=== PATIENT | female | born 1940 | race Caucasian/White ===

== ENCOUNTER 2017-09-05 19:19 | Inpatient (IN) | payer MEDICARE, OTHER ==
[2017-09-05 19:41] VITALS: BMI 38.6
--- NOTE | 2017-09-05 22:19 | PDOC ---
History of Present Illness - General Chief Complaint: Syncope/Near Syncope Stated Complaint: SYNCOPE Time Seen by Provider: 09/05/17 21:07 - History of Present Illness Initial Comments: 09/05/17 22:09 "The patient is a 77 year old female with a past medical history of diabetes, HTN, alzheimer's, CHF s/p PPM, and recent left knee replacement (1 week ago), who presents to the emergency department with syncope. Family states that the patient was transferring from chair to bed when she went unresponsive. Granddaughter states that she was holding the patient in her arms to help her into bed when this occurred. She states that the pt's eyes rolled back and she went stiff. Patient was unconscious for 15 seconds total before returning to baseline. No seizure-like movements were witnessed. After the episode the patient had one episode of clear vomiting. Pt now denies any complaints other than fatigue. Denies ever having CP/SOB/palpitations. Family states that this is not the first time this has happened. SHe has had 2- 3 witnessed syncopal events in the past 3 months. However, she has never seen a doctor regarding these episodes. Past History - Past Medical History Allergies/Adverse Reactions: Allergies Allergy/AdvReac Type Severity Reaction Status Date / Time penicillin G Allergy Verified 09/05/17 19:37 Home Medications: Ambulatory Orders Acetaminophen [Tylenol] 325 mg PO Q4HWA 09/05/17 Amlodipine Besylate/Benazepril [Lotrel 5-40 mg Capsule] 1 each PO DAILY Apixaban [Eliquis] 2.5 mg PO DAILY 09/05/17 Aspirin [Aspirin EC] 81 mg PO DAILY 09/05/17 Donepezil HCl [Aricept -] 5 mg PO DAILY 09/05/17 Hydrochlorothiazide 25 mg PO DAILY 09/05/17 Labetalol HCl 300 mg PO BID 09/05/17 Oxycodone HCl 5 mg PO Q4HWA 09/05/17 Pantoprazole Sodium 40 mg PO DAILY 09/05/17 Pioglitazone HCl 15 mg PO DAILY 09/05/17 Rosuvastatin Calcium [Crestor] 10 mg PO HS 09/05/17 Sertraline HCl [Zoloft] 100 mg PO DAILY 09/05/17 COPD: No - Suicide/Smoking/Psychosocial Hx Smoking History: Never smoked Have you smoked in the past 12 months: No Information on smoking cessation initiated: No Hx Alcohol Use: No Drug/Substance Use Hx: No Review of Systems - Review of Systems Comments:: 09/05/17 22:25 "GENERAL/CONSTITUTIONAL: No fever or chills. No weakness. HEAD, EYES, EARS, NOSE AND THROAT: No change in vision. No ear pain or discharge. No sore throat. CARDIOVASCULAR: No chest pain or shortness of breath. RESPIRATORY: No cough, wheezing, or hemoptysis. GASTROINTESTINAL: No nausea, vomiting, diarrhea or constipation. GENITOURINARY: No dysuria, frequency, or change in urination. MUSCULOSKELETAL: No joint or muscle swelling or pain. No neck or back pain. SKIN: No rash NEUROLOGIC: (+) Loss of consciousness. No headache, vertigo, or change in strength/sensation. ENDOCRINE: No increased thirst. No abnormal weight change. HEMATOLOGIC/LYMPHATIC: No anemia, easy bleeding, or history of blood clots. ALLERGIC/IMMUNOLOGIC: No hives or skin allergy." *Physical Exam - Vital Signs Last Vital Signs Temp Pulse Resp BP Pulse Ox 99.6 F 52 L 18 136/68 96 09/05/17 19:27 09/05/17 19:27 09/05/17 19:27 09/05/17 19:27 09/05/17 19:27 - Physical Exam Comments: 09/05/17 22:25 "GENERAL: Awake, alert, in no acute distress HEAD: No signs of trauma EYES: PERRLA, EOMI, sclera anicteric, conjunctiva clear ENT: Auricles normal inspection, hearing grossly normal, nares patent, oropharynx clear without exudates. Moist mucosa NECK: Nontender, no stepoffs, Normal ROM, supple, no lymphadenopathy, JVD, or masses LUNGS: Breath sounds equal, clear to auscultation bilaterally. No wheezes, and no crackles HEART: Regular rate and rhythm, normal S1 and S2, no murmurs, rubs or gallops ABDOMEN: Soft, nontender, normoactive bowel sounds. No guarding, no rebound. No masses EXTREMITIES: Normal range of motion, no edema. No clubbing or cyanosis. No cords, erythema, or tenderness NEUROLOGICAL: Cranial nerves II through XII intact. 5/5 strength and sensation in all extremities, Normal speech, SKIN: Warm, Dry, normal turgor, no rashes or lesions noted. " Heart Score/ECG Review - ECG Impressions Comment:: 09/05/17 22:26 AV paced rhythm, rate 60, no RICCARDO/STDs ED Treatment Course - LABORATORY CBC & Chemistry Diagram: 09/05/17 21:53 09/05/17 21:53 - ADDITIONAL ORDERS Additional order review: Laboratory Results 09/05/17 09/05/17 09/05/17 23:22 21:53 21:53 PT with INR 15.70 H INR 1.39 H PTT (Actin FS) Sodium Potassium Chloride Carbon Dioxide Anion Gap BUN Creatinine Creat Clearance w eGFR Random Glucose Calcium Total Bilirubin AST ALT Alkaline Phosphatase Creatine Kinase Troponin I B-Natriuretic Peptide 735.88 H Total Protein Albumin Urine Color Ltyellow Urine Appearance Slcloudy Urine pH 5.0 Ur Specific [place] 1.012 Urine Protein Negative Urine Glucose (UA) Negative Urine Ketones Negative Urine Blood Negative Urine Nitrite Negative Urine Bilirubin Negative Urine Urobilinogen Negative Urine WBC (Auto) 5 Urine RBC (Auto) <1 Ur Epithelial Cells Rare Urine Bacteria Rare 09/05/17 09/05/17 09/05/17 21:53 21:53 21:53 PT with INR INR PTT (Actin FS) 32.6 Sodium 140 Potassium 4.3 Chloride 101 Carbon Dioxide 28 Anion Gap 11 BUN 45 H Creatinine 1.9 H Creat Clearance w eGFR 25.50 Random Glucose 148 H Calcium 8.9 Total Bilirubin 0.4 AST 14 L ALT 23 Alkaline Phosphatase 116 Creatine Kinase 86 Troponin I < 0.02 B-Natriuretic Peptide Total Protein 6.5 Albumin 3.3 L Urine Color Urine Appearance Urine pH Ur Specific [place] Urine Protein Urine Glucose (UA) Urine Ketones Urine Blood Urine Nitrite Urine Bilirubin Urine Urobilinogen Urine WBC (Auto) Urine RBC (Auto) Ur Epithelial Cells Urine Bacteria 09/05/17 21:53 RBC 3.41 L MCV 82.1 MCHC 33.7 RDW 15.1 MPV 10.4 Neutrophils % 77.7 Lymphocytes % 12.1 Monocytes % 7.0 Eosinophils % 2.4 Basophils % 0.8 - RADIOLOGY Radiology Studies Ordered: Category Date Time Status CHEST X-RAY PORTABLE* [RAD] Stat Radiology 09/05/17 21:43 Taken Medical Decision Making - Medical Decision Making 09/05/17 22:26 77 F with syncopal episode. Pt HD stable. Slightly hector in triage but with normal BP. EKG with rate of 60 and no evidence of pacemaker failure. No seizure- like activity witnessed by family. No evidence of head trauma per history or on exam. - Labs, trop, EKG, CXR - admit tele 09/06/17 00:13 CBC,CMP WBC 9.7 K/mm3 (4.0-10.0) 09/05/17 21:53 RBC 3.41 M/mm3 (3.60-5.2) L 09/05/17 21:53 Hgb 9.4 GM/dL (10.7-15.3) L 09/05/17 21:53 Hct 28.0 % (32.4-45.2) L 09/05/17 21:53 MCV 82.1 fl (80-96) 09/05/17 21:53 MCH 27.7 pg (25.7-33.7) 09/05/17 21:53 MCHC 33.7 g/dl (32.0-36.0) 09/05/17 21:53 RDW 15.1 % (11.6-15.6) 09/05/17 21:53 Plt Count 322 K/MM3 (134-434) 09/05/17 21:53 MPV 10.4 fl (7.5-11.1) 09/05/17 21:53 Neutrophils % 77.7 % (42.8-82.8) 09/05/17 21:53 Lymphocytes % 12.1 % (8-40) 09/05/17 21:53 Monocytes % 7.0 % (3.8-10.2) 09/05/17 21:53 Eosinophils % 2.4 % (0-4.5) 09/05/17 21:53 Basophils % 0.8 % (0-2.0) 09/05/17 21:53 Sodium 140 mmol/L (136-145) 09/05/17 21:53 Potassium 4.3 mmol/L (3.5-5.1) 09/05/17 21:53 Chloride 101 mmol/L (98-107) 09/05/17 21:53 Carbon Dioxide 28 mmol/L (21-32) 09/05/17 21:53 Anion Gap 11 (8-16) 09/05/17 21:53 BUN 45 mg/dL (7-18) H 09/05/17 21:53 Creatinine 1.9 mg/dL (0.55-1.02) H 09/05/17 21:53 Creat Clearance w eGFR 25.50 (>60) 09/05/17 21:53 Random Glucose 148 mg/dL (74-106) H 09/05/17 21:53 Calcium 8.9 mg/dL (8.5-10.1) 09/05/17 21:53 Total Bilirubin 0.4 mg/dL (0.2-1.0) 09/05/17 21:53 AST 14 U/L (15-37) L 09/05/17 21:53 ALT 23 U/L (12-78) 09/05/17 21:53 Alkaline Phosphatase 116 U/L (45-117) 09/05/17 21:53 Creatine Kinase 86 IU/L (26-192) 09/05/17 21:53 Troponin I < 0.02 ng/ml (0.00-0.05) 09/05/17 21:53 B-Natriuretic Peptide 735.88 pg/ml (5-450) H 09/05/17 21:53 Total Protein 6.5 g/dl (6.4-8.2) 09/05/17 21:53 Albumin 3.3 g/dl (3.4-5.0) L 09/05/17 21:53 Labs notable for anemia Hb 9.4. Possible SHWETA with Cr 1.9. BNP 735 and cardiomegaly on CXR, suggestive of CHF. Unclear whether these values are pt's baseline, as we have no prior labs. On my read, CXR shows RLL atelectasis vs consolidation. Pt with no s/s pneumonia at this time, afebrile without tachypnea or hypoxia. Will defer abx. Given significant comorbidities, will admit to tele for syncope work up. Consider r/o PE as well given recent post-op status. However, with Cr 1.9, cannot obtain CTA. Consider V/Q scan when admitted. 09/06/17 00:[address] Olivera, who has agreed to admit pt to tele obs. Case discussed in detail with admitting physician including history, physical exam and ancillary studies. Admitting physician has assumed care for the patient and will follow all pending diagnostics and complete the evaluation and treatment. *DC/Admit/Observation/Transfer Diagnosis at time of Disposition: Syncope - Discharge Dispostion Admit: Yes - Referrals Referrals: Perlita Olivera MD [Primary Care Provider] - - Patient Instructions - Post Discharge Activity - Attestations Physician Attestion: 09/06/17 00:18 I, Dr. Jaime Engle MD, attest that this document has been prepared under my direction and personally reviewed by me in its entirety. I further attest, that it accurately reflects all work, treatment, procedures and medical decision -making performed by me.
[2017-09-05 22:30] LABS: BASOPHIL 0.8 % (0-2.0); EOSINOPHIL 2.4 % (0-4.5); MCH 27.7 pg (25.7-33.7); MCHC 33.7 g/dl (32.0-36.0); MEAN CELL VOLUME 82.1 fl (80-96); MEAN PLT VOLUME 10.4 fl (7.5-11.1); NEUTROPHILS 77.7 % (42.8-82.8); PLATELET COUNT 322 K/MM3 (134-434); RDW 15.1 % (11.6-15.6); WHITE BLOOD COUNT 9.7 K/mm3 (4.0-10.0)
[2017-09-05 22:40] LABS: INR 1.39 (0.82-1.09); PROTHROMBIN TIME (PATIENT) 15.7 SEC (9.98-11.88)
[2017-09-05 23:06] LABS: ALBUMIN 3.3 g/dl (3.4-5.0); ALK PHOS 116 U/L (45-117); ANION GAP 11 (8-16); BILIRUBIN,TOTAL 0.4 mg/dL (0.2-1.0); CALCIUM 8.9 mg/dL (8.5-10.1); CO2 28 mmol/L (21-32); CREATININE 1.9 mg/dL (0.55-1.02); GLUCOSE,RANDOM 148 mg/dL (74-106); SGOT/AST 14 U/L (15-37); SGPT/ALT 23 U/L (12-78); TOT PROT 6.5 g/dl (6.4-8.2)
[2017-09-05 23:10] LABS: CPK 86 IU/L (26-192)
[2017-09-05 23:11] LABS: TROPONIN I < 0.02 ng/ml (0.00-0.05)
[2017-09-05 23:35] LABS: URINE APPEARANCE SLCLOUDY; URINE BILIRUBIN NEGATIVE (NEGATIVE); URINE BLOOD NEGATIVE (NEGATIVE); URINE COLOR LTYELLOW; URINE GLUCOSE (UA) NEGATIVE (NEGATIVE); URINE KETONE NEGATIVE (NEGATIVE); URINE NITRITE NEGATIVE (NEGATIVE); URINE PROTEIN NEGATIVE (NEGATIVE); URINE UROBILINOGEN NEGATIVE mg/dL (0.2-1.0)
[2017-09-06 00:01] LABS: URINE LEUK ESTERASE 1+ (NEGATIVE)
[2017-09-06 00:03] LABS: URINE BACTERIA RARE /hpf (NONE SEEN); URINE RBC <1 /hpf (0-3); URINE WBC 5 /hpf (3-5)
[2017-09-06] MEDS ORDERED: oxyCODONE HCL 5 MG TABLET PO PRN (07:18)
[2017-09-06 08:49] LABS: BASOPHIL 1.5 % (0-2.0); EOSINOPHIL 3.6 % (0-4.5); MCH 27.4 pg (25.7-33.7); MCHC 33.3 g/dl (32.0-36.0); MEAN CELL VOLUME 82.4 fl (80-96); MEAN PLT VOLUME 10.1 fl (7.5-11.1); NEUTROPHILS 70.7 % (42.8-82.8); PLATELET COUNT 310 K/MM3 (134-434); RDW 14.9 % (11.6-15.6); WHITE BLOOD COUNT 9.5 K/mm3 (4.0-10.0)
--- NOTE | 2017-09-06 08:57 | HP ---
Admitting History and Physical - Admission History of Present Illness: 77 year old female with a past medical history of diabetes, HTN, alzheimer's, CHF s/p PPM, and recent left knee replacement (1 week ago), who presents to the emergency department with syncope. Family states that the patient was transferring from chair to bed when she went unresponsive. Granddaughter states that she was holding the patient in her arms to help her into bed when this occurred. She states that the pt's eyes rolled back and she went stiff. Patient was unconscious for 15 seconds total before returning to baseline. No seizure- like movements were witnessed. After the episode the patient had one episode of clear vomiting. Pt now denies any complaints other than fatigue. Denies ever having CP/SOB/palpitations. Family states that this is not the first time this has happened. SHe has had 2- 3 witnessed syncopal events in the past 3 months. However, she has never seen a doctor regarding these episodes. 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 Cardiovascular: Yes: CAD (S/P PCI), HTN, Hyperlipdemia Pulmonary: Yes: COPD Gastrointestinal: Yes: GERD Musculoskeletal: Yes: Osteoarthritis Endocrine: Yes: Diabetes Mellitus - Past Surgical History Past Surgical History: Yes: Joint Replacement - Smoking History Smoking history: Never smoked Have you smoked in the past 12 months: No - Alcohol/Substance Use Hx Alcohol Use: No Home Medications - Allergies Allergies/Adverse Reactions: Allergies Allergy/AdvReac Type Severity Reaction Status Date / Time penicillin G Allergy Verified 09/05/17 19:37 - Home Medications Home Medications: Ambulatory Orders Acetaminophen [Tylenol] 325 mg PO Q4HWA 09/05/17 Amlodipine Besylate/Benazepril [Lotrel 5-40 mg Capsule] 1 each PO DAILY Apixaban [Eliquis] 2.5 mg PO DAILY 09/05/17 Aspirin [Aspirin EC] 81 mg PO DAILY 09/05/17 Donepezil HCl [Aricept -] 5 mg PO DAILY 09/05/17 Hydrochlorothiazide 25 mg PO DAILY 09/05/17 Labetalol HCl 300 mg PO BID 09/05/17 Oxycodone HCl 5 mg PO Q4HWA 09/05/17 Pantoprazole Sodium 40 mg PO DAILY 09/05/17 Pioglitazone HCl 15 mg PO DAILY 09/05/17 Rosuvastatin Calcium [Crestor] 10 mg PO HS 09/05/17 Sertraline HCl [Zoloft] 100 mg PO DAILY 09/05/17 Review of Systems - Review of Systems Constitutional: reports: Weakness Cardiovascular: denies: Chest Pain Respiratory: denies: SOB Neurological: reports: Syncope Physical Examination Vital Signs: Vital Signs Temperature 98.3 F 09/06/17 06:29 Pulse Rate 68 09/06/17 06:29 Respiratory Rate 18 09/06/17 06:29 Blood Pressure 139/63 09/06/17 06:29 O2 Sat by Pulse Oximetry (%) 98 09/06/17 06:29 Neck: Yes: Supple Cardiovascular: Yes: Regular Rate and Rhythm Respiratory: Yes: Regular, CTA Bilaterally Gastrointestinal: Yes: Normal Bowel Sounds, Soft Musculoskeletal: Yes: Other (DRESSING OVER LEFT KNEE) Edema: Yes Neurological: Yes: Alert, Confusion, Unsteady Gait. No: Facial Droop Labs: CBC, BMP 09/05/17 21:53 Problem List - Problems (1) Syncope Assessment/Plan: CT OF HEAD NEUROLOGY CONSULT TELEMETRY FOLLOW LABS D-DIMER Code(s): R55 - SYNCOPE AND COLLAPSE (2) CAD (coronary artery disease) Assessment/Plan: FOLLOW CE CARDIO Code(s): I25.10 - ATHSCL HEART DISEASE OF [place] CORONARY ARTERY W/O ANG PCTRS (3) HTN (hypertension) Assessment/Plan: SAME MEDS MONITOR Code(s): I10 - ESSENTIAL (PRIMARY) HYPERTENSION (4) Cardiac pacemaker in situ Code(s): Z95.0 - PRESENCE OF CARDIAC PACEMAKER (5) Status post knee replacement Assessment/Plan: OTHO CONSULT ON ELIQUIS 2.5 DAILY--INCREASE TO 5 MG BID DUPLEX OF LE Code(s): Z96.659 - PRESENCE OF UNSPECIFIED ARTIFICIAL KNEE JOINT
[2017-09-06 09:19] LABS: TROPONIN I 0.02 ng/ml (0.00-0.05)
[2017-09-06] MEDS ORDERED: APIXABAN 2.5 MG TABLET PO SCH (10:00)
[2017-09-06] MEDS ORDERED: ACETAMINOPHEN 325 MG TABLET (FP) PO SCH (10:00)
[2017-09-06] MEDS ORDERED: HYDROCHLOROTHIAZIDE 25 MG TABLET (FP) PO SCH (10:00)
[2017-09-06] MEDS ORDERED: ACETAMINOPHEN 325 MG TABLET (FP) ONE (10:30)
[2017-09-06] MEDS ORDERED: HYDROCHLOROTHIAZIDE 25 MG TABLET (FP) ONE (10:31)
[2017-09-06] MEDS ORDERED: amLODIPine BESYLATE 5 MG TABLET (FP) ONE (10:31)
[2017-09-06] MEDS ORDERED: LISINOPRIL 20 MG TABLET (FP) ONE (10:31)
[2017-09-06] MEDS ORDERED: PANTOPRAZOLE 40 MG TABLET (FP) ONE (10:31)
[2017-09-06] MEDS ORDERED: ASPIRIN COATED 81 MG TABLET.EC ONE (10:32)
[2017-09-06] MEDS ORDERED: LABETALOL HCL 100 MG TABLET (FP) ONE (10:32)
[2017-09-06] MEDS ORDERED: SERTRALINE HCL 50 MG TABLET (FP) ONE (10:32)
[2017-09-06] MEDS ORDERED: DONEPEZIL HCL 5 MG TABLET (FP) ONE (10:32)
[2017-09-06] MEDS: amLODIPine BESYLATE 5 MG TABLET (FP) PO SCH (10:50)
[2017-09-06] MEDS: SERTRALINE HCL 50 MG TABLET (FP) PO SCH (10:50)
[2017-09-06] MEDS: PANTOPRAZOLE 40 MG TABLET (FP) PO SCH (10:50)
[2017-09-06] MEDS: LISINOPRIL 20 MG TABLET (FP) PO SCH (10:50)
[2017-09-06] MEDS: LABETALOL HCL 100 MG TABLET (FP) PO SCH ×2 (10:50→22:48)
[2017-09-06] MEDS: ASPIRIN COATED 81 MG TABLET.EC PO SCH (10:50)
[2017-09-06] MEDS: DONEPEZIL HCL 5 MG TABLET (FP) PO SCH (10:50)
[2017-09-06] MEDS: PIOGLITAZONE HCL 15 MG TABLET (FP) PO SCH (10:58)
[2017-09-06] MEDS: INSULIN SLIDING SCALE (NOVOLOG) 1 VIAL SQ SCH ×3 (11:56→22:54)
--- NOTE | 2017-09-06 12:10 | CON.NEURO ---
Consult - History of Present Illness History of Present Illness: 77 year old female history of DM, HTN ,Alzheimer disease, CHF , recent left knee replacement. She came to [facility] for being unreponsive for few seconds. Her eye rolled back and she went siff, there was no seizure activity ( motor tonic or clonci acvity). There was no tongue bite or incontinence or post ictal confusion. She did have similar event in past. 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 Cardio/Vascular: Yes: CAD (S/P PCI), HTN, Hyperlipdemia Pulmonary: Yes: COPD Gastrointestinal: Yes: GERD Musculoskeletal: Yes: Osteoarthritis Endocrine: Yes: Diabetes Mellitus - Past Surgical History Past Surgical History: Yes: Joint Replacement - Alcohol/Substance Use Hx Alcohol Use: No - Smoking History Smoking history: Never smoked Have you smoked in the past 12 months: No Home Medications - Allergies Allergies/Adverse Reactions: Allergies Allergy/AdvReac Type Severity Reaction Status Date / Time penicillin G Allergy Verified 09/05/17 19:37 - Home Medications Home Medications: Ambulatory Orders Acetaminophen [Tylenol] 325 mg PO Q4HWA 09/05/17 Amlodipine Besylate/Benazepril [Lotrel 5-40 mg Capsule] 1 each PO DAILY Apixaban [Eliquis] 2.5 mg PO DAILY 09/05/17 Aspirin [Aspirin EC] 81 mg PO DAILY 09/05/17 Donepezil HCl [Aricept -] 5 mg PO DAILY 09/05/17 Hydrochlorothiazide 25 mg PO DAILY 09/05/17 Labetalol HCl 300 mg PO BID 09/05/17 Oxycodone HCl 5 mg PO Q4HWA 09/05/17 Pantoprazole Sodium 40 mg PO DAILY 09/05/17 Pioglitazone HCl 15 mg PO DAILY 09/05/17 Rosuvastatin Calcium [Crestor] 10 mg PO HS 09/05/17 Sertraline HCl [Zoloft] 100 mg PO DAILY 09/05/17 Physical Exam-Neuro Vital Signs: Vital Signs Temperature 97.7 F 09/06/17 10:29 Pulse Rate 65 09/06/17 10:29 Respiratory Rate 18 09/06/17 06:29 Blood Pressure 132/62 09/06/17 10:29 O2 Sat by Pulse Oximetry (%) 98 09/06/17 10:29 Labs: CBC, BMP 09/06/17 08:30 09/05/17 21:53 INR, PTT INR 1.39 (0.82-1.09) H 09/05/17 21:53 Assessment/Plan cc episod of passing out HPI 77 year old female history of DM, HTN ,Alzheimer disease, CHF , recent left knee replacement. She came to [facility] for being unreponsive for few seconds. Her eye rolled back and she went siff, there was no seizure activity ( motor tonic or clonci acvity). There was no tongue bite or incontinence or post ictal confusion. She did have similar event in past. Past Medical History as above FH, SH non contributory and reviewed in chart ROS reviewed in chart Home Medications: Acetaminophen [Tylenol] 325 mg PO Q4HWA 09/05/17 Amlodipine Besylate/Benazepril [Lotrel 5-40 mg Capsule] 1 each PO DAILY Apixaban [Eliquis] 2.5 mg PO DAILY 09/05/17 Aspirin [Aspirin EC] 81 mg PO DAILY 09/05/17 Donepezil HCl [Aricept -] 5 mg PO DAILY 09/05/17 Hydrochlorothiazide 25 mg PO DAILY 09/05/17 Labetalol HCl 300 mg PO BID 09/05/17 Oxycodone HCl 5 mg PO Q4HWA 09/05/17 Pantoprazole Sodium 40 mg PO DAILY 09/05/17 Pioglitazone HCl 15 mg PO DAILY 09/05/17 Rosuvastatin Calcium [Crestor] 10 mg PO HS 09/05/17 Sertraline HCl [Zoloft] 100 mg PO DAILY 09/05/17 Neurological Examination Alert able to follow command, speech is ormal eomi, and no face asymmetry, pupils is reactive moving all extremity sensation is normal grossly ct head nto done Assessemnt- Most likley syncopl episode, unlikley to be epileptic seizure activity Plan would do ct head and eeg - cardiac work up as per primary - supportive care and resume home medication - no need for AED Medication Thanks for consult, would continue to follow with primary Fred Espinosa MD
[2017-09-06 12:16] LABS: URINE LEUK ESTERASE TRACE (NEGATIVE)
--- NOTE | 2017-09-06 15:14 | CON.CARD ---
Consult Consult Specialty:: Cardiology - History of Present Illness Chief Complaint: syncope History of Present Illness: 77 F with Alzheimers disease, HTN, recent Knee replacement, records form [place] indicate possible DVT with ho PPM was admitted after a syncopal event as per notes while being transferred, she hd transient LOC and became stiff. No reports of dyspnea or palpitations. Unknown prior CAD history. 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 Cardio/Vascular: Yes: CAD (S/P PCI), HTN, Hyperlipdemia Pulmonary: Yes: COPD Gastrointestinal: Yes: GERD Musculoskeletal: Yes: Osteoarthritis Endocrine: Yes: Diabetes Mellitus - Past Surgical History Past Surgical History: Yes: Joint Replacement - Alcohol/Substance Use Hx Alcohol Use: No - Smoking History Smoking history: Never smoked Have you smoked in the past 12 months: No Home Medications - Allergies Allergies/Adverse Reactions: Allergies Allergy/AdvReac Type Severity Reaction Status Date / Time penicillin G Allergy Verified 09/05/17 19:37 - Home Medications Home Medications: Ambulatory Orders Acetaminophen [Tylenol] 325 mg PO Q4HWA 09/05/17 Amlodipine Besylate/Benazepril [Lotrel 5-40 mg Capsule] 1 each PO DAILY Apixaban [Eliquis] 2.5 mg PO DAILY 09/05/17 Aspirin [Aspirin EC] 81 mg PO DAILY 09/05/17 Donepezil HCl [Aricept -] 5 mg PO DAILY 09/05/17 Hydrochlorothiazide 25 mg PO DAILY 09/05/17 Labetalol HCl 300 mg PO BID 09/05/17 Oxycodone HCl 5 mg PO Q4HWA 09/05/17 Pantoprazole Sodium 40 mg PO DAILY 09/05/17 Pioglitazone HCl 15 mg PO DAILY 09/05/17 Rosuvastatin Calcium [Crestor] 10 mg PO HS 09/05/17 Sertraline HCl [Zoloft] 100 mg PO DAILY 09/05/17 Review of Systems Unable to obtain ROS, reason: Due to Dementia Vital Signs: Vital Signs Temperature 98.7 F 09/06/17 12:00 Pulse Rate 55 L 09/06/17 12:00 Respiratory Rate 18 09/06/17 12:00 Blood Pressure 123/50 09/06/17 12:00 O2 Sat by Pulse Oximetry (%) 98 09/06/17 12:00 Constitutional: Yes: Well Nourished, No Distress Eyes: Yes: WNL, Conjunctiva Clear HENT: Yes: Atraumatic, Normocephalic Neck: Yes: Supple, Trachea Midline Respiratory: Yes: Regular, CTA Bilaterally Gastrointestinal: Yes: Normal Bowel Sounds, Soft Cardiovascular: Yes: Regular Rate and Rhythm Heart Sounds: Yes: S1, S2 Edema: No - Other Data Labs, Other Data: CBC, BMP 09/06/17 08:30 09/05/17 21:53 INR, PTT INR 1.39 (0.82-1.09) H 09/05/17 21:53 Troponin, BNP 09/05/17 09/05/17 09/06/17 21:53 21:53 08:30 Troponin I < 0.02 0.02 B-Natriuretic Peptide 735.88 H Troponin, BNP 09/05/17 09/05/17 09/06/17 21:53 21:53 08:30 Troponin I < 0.02 0.02 B-Natriuretic Peptide 735.88 H Imaging - Results EKG: Image Reviewed (AV paced. HR 50 BPM) Problem List - Problems (1) Syncope Code(s): R55 - SYNCOPE AND COLLAPSE (2) Cardiac pacemaker in situ Code(s): Z95.0 - PRESENCE OF CARDIAC PACEMAKER (3) HTN (hypertension) Code(s): I10 - ESSENTIAL (PRIMARY) HYPERTENSION Assessment/Plan 77 F previous pacemaker with alzheimers dementia, possible CAD, possible DVT, recent knee replacement surgery, who was admitted with another bout of syncope. SHe has renal insufficiency. May have had orthostatic BP decline and dehydration. WOuld exclude pacer malfunction or other arrhythmia. -Please check pacer function-needs interrogation -Echocardiogram to assess EF -Hold HCTZ -Check orthostatic BP. -Continue telemetry. Will follow with you.
--- NOTE | 2017-09-06 17:19 | CON.PULM ---
Consult Consult Specialty:: PULMONARY Referred by:: Dr. Olivera Reason for Consultation:: elevated d-dimer - History of Present Illness Chief Complaint: syncope History of Present Illness: 77yo female with h/o HTN, DM, CHF, s/p PPM, dementia, left knee replacement 1 week ago who was admitted with syncope. She denies any shortness of breath or chest pain. No palpitations. Records from [facility] showing possible DVT but repeat dopplers here were negative. No leg pain. She is a never smoker. Blood work with an elevated d-dimer. 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 Cardio/Vascular: Yes: CAD (S/P PCI), HTN, Hyperlipdemia Pulmonary: Yes: COPD Gastrointestinal: Yes: GERD Musculoskeletal: Yes: Osteoarthritis Endocrine: Yes: Diabetes Mellitus - Past Surgical History Past Surgical History: Yes: Joint Replacement - Alcohol/Substance Use Hx Alcohol Use: No - Smoking History Smoking history: Never smoked Have you smoked in the past 12 months: No Home Medications - Allergies Allergies/Adverse Reactions: Allergies Allergy/AdvReac Type Severity Reaction Status Date / Time penicillin G Allergy Verified 09/05/17 19:37 - Home Medications Home Medications: Ambulatory Orders Acetaminophen [Tylenol] 325 mg PO Q4HWA 09/05/17 Amlodipine Besylate/Benazepril [Lotrel 5-40 mg Capsule] 1 each PO DAILY Apixaban [Eliquis] 2.5 mg PO DAILY 09/05/17 Aspirin [Aspirin EC] 81 mg PO DAILY 09/05/17 Donepezil HCl [Aricept -] 5 mg PO DAILY 09/05/17 Hydrochlorothiazide 25 mg PO DAILY 09/05/17 Labetalol HCl 300 mg PO BID 09/05/17 Oxycodone HCl 5 mg PO Q4HWA 09/05/17 Pantoprazole Sodium 40 mg PO DAILY 09/05/17 Pioglitazone HCl 15 mg PO DAILY 09/05/17 Rosuvastatin Calcium [Crestor] 10 mg PO HS 09/05/17 Sertraline HCl [Zoloft] 100 mg PO DAILY 09/05/17 Review of Systems - Review of Systems Constitutional: denies: Chills, Fever Eyes: denies: Recent Change in Vision HENT: denies: Nasal Congestion, Throat Pain Neck: denies: Stiffness, Tenderness Cardiovascular: denies: Chest Pain, Shortness of Breath Respiratory: denies: Cough, Wheezing Gastrointestinal: denies: Abdominal Pain, Nausea, Vomiting Genitourinary: denies: Dysuria, Hematuria Neurological: reports: Syncope. denies: Dizziness, Headache Physical Exam Vital Sings: Vital Signs Temperature 98.7 F 09/06/17 12:00 Pulse Rate 55 L 09/06/17 12:00 Respiratory Rate 18 09/06/17 12:00 Blood Pressure 123/50 09/06/17 12:00 O2 Sat by Pulse Oximetry (%) 98 09/06/17 12:00 Constitutional: Yes: Calm Eyes: Yes: Conjunctiva Clear, EOM Intact HENT: Yes: Atraumatic, Normocephalic Neck: Yes: Supple, Trachea Midline Cardiovascular: Yes: Regular Rate and Rhythm Respiratory: Yes: Regular, Diminished (decreased breath sounds at the bases) ...Clubbing: No Gastrointestinal: Yes: Normal Bowel Sounds, Soft Edema: No (left leg in immobilizer) Labs: CBC, BMP 09/06/17 08:30 09/05/17 21:53 Imaging - Results Chest X-ray: Report Reviewed, Image Reviewed (pulmonary vascular congestion) Problem List - Problems (1) Cardiac pacemaker in situ Code(s): Z95.0 - PRESENCE OF CARDIAC PACEMAKER (2) HTN (hypertension) Code(s): I10 - ESSENTIAL (PRIMARY) HYPERTENSION (3) Status post knee replacement Code(s): Z96.659 - PRESENCE OF UNSPECIFIED ARTIFICIAL KNEE JOINT (4) Syncope Code(s): R55 - SYNCOPE AND COLLAPSE Assessment/Plan Syncope Recent Knee Surgery HTN CHF Dementia - elevated d-dimer is nonspecific especially after recent surgery - repeat LE dopplers were negative, pt without symptoms, not tachycardic or hypoxic, so PE would be less likely - echocardiogram - telemetry monitoring Thank you for this consult Terry Peters MD
--- NOTE | 2017-09-06 21:03 | EKG ---
Test Reason : Blood Pressure : / mmHG Vent. Rate : 060 BPM Atrial Rate : 060 BPM P-R Int : 174 ms QRS Dur : 194 ms QT Int : 524 ms P-R-T Axes : 070 -81 082 degrees QTc Int : 524 ms Atrial-sensed ventricular-paced rhythm ABNORMAL ECG NO PREVIOUS ECGS AVAILABLE Confirmed by ALEXANDRIA LOUIS MD ([id number]) on 09/06/2017 9:03:13 PM Referred By: Confirmed By:ALEXANDRIA LOUIS MD
--- NOTE | 2017-09-06 22:09 | EKG ---
Test Reason : Blood Pressure : / mmHG Vent. Rate : 050 BPM Atrial Rate : 050 BPM P-R Int : 188 ms QRS Dur : 188 ms QT Int : 528 ms P-R-T Axes : 027 -81 076 degrees QTc Int : 481 ms AV dual-paced rhythm ABNORMAL ECG WHEN COMPARED WITH ECG OF 05-SEP-2017 20:45, VENT. RATE HAS DECREASED BY 10 BPM Confirmed by ALEXANDRIA LOUIS MD ([id number]) on 09/06/2017 10:08:35 PM Referred By: Star VIEIRA Confirmed By:ALEXANDRIA LOUIS MD
[2017-09-06] MEDS: APIXABAN 5 MG TABLET PO SCH (22:49)
[2017-09-06] MEDS: ACETAMINOPHEN 325 MG TABLET (FP) PO PRN (22:50)
[2017-09-06] MEDS: ROSUVASTATIN CA 10 MG TABLET (FP) PO SCH (22:50)
[2017-09-07] MEDS: INSULIN SLIDING SCALE (NOVOLOG) 1 VIAL SQ SCH ×4 (06:09→21:56)
[2017-09-07] MEDS: PIOGLITAZONE HCL 15 MG TABLET (FP) PO SCH (06:10)
[2017-09-07 07:23] LABS: BASOPHIL 0.6 % (0-2.0); EOSINOPHIL 3.4 % (0-4.5); MCH 27.3 pg (25.7-33.7); MEAN CELL VOLUME 82.7 fl (80-96); MEAN PLT VOLUME 10.7 fl (7.5-11.1); NEUTROPHILS 69.5 % (42.8-82.8); PLATELET COUNT 320 K/MM3 (134-434); RDW 15.3 % (11.6-15.6); WHITE BLOOD COUNT 9.6 K/mm3 (4.0-10.0)
[2017-09-07 08:00] LABS: ALBUMIN 3.1 g/dl (3.4-5.0); ALK PHOS 106 U/L (45-117); ANION GAP 8 (8-16); BILIRUBIN,TOTAL 0.4 mg/dL (0.2-1.0); CALCIUM 8.8 mg/dL (8.5-10.1); CO2 29 mmol/L (21-32); CPK 82 IU/L (26-192); GLUCOSE,RANDOM 99 mg/dL (74-106); SGOT/AST 14 U/L (15-37); SGPT/ALT 18 U/L (12-78); TOT PROT 6.4 g/dl (6.4-8.2)
[2017-09-07 08:02] LABS: TROPONIN I < 0.02 ng/ml (0.00-0.05)
[2017-09-07] MEDS: PANTOPRAZOLE 40 MG TABLET (FP) PO SCH (09:18)
[2017-09-07] MEDS: ASPIRIN COATED 81 MG TABLET.EC PO SCH (09:19)
[2017-09-07] MEDS: DONEPEZIL HCL 5 MG TABLET (FP) PO SCH (09:19)
[2017-09-07] MEDS: APIXABAN 5 MG TABLET PO SCH ×2 (09:19→21:51)
[2017-09-07] MEDS: SERTRALINE HCL 50 MG TABLET (FP) PO SCH (09:19)
[2017-09-07] MEDS: LISINOPRIL 20 MG TABLET (FP) PO SCH (09:21)
--- NOTE | 2017-09-07 11:01 | PN ---
Progress Note (short form) - Note Progress Note: 77 year old female history of DM, HTN ,Alzheimer disease, CHF , recent left knee replacement. She came to hospital for being unreponsive for few seconds. Her eye rolled back and she went siff, there was no seizure activity ( motor tonic or clonci acvity). There was no tongue bite or incontinence or post ictal confusion. She did have similar event in past. Neurological Examination Alert able to follow command, speech is ormal eomi, and no face asymmetry, pupils is reactive moving all extremity sensation is normal grossly CT Head was normal Assessemnt- Sycope, Unlikley to be Epileptic seizure, ct head is normal and neuro exam is unremarkable. -EEG pending, can be done outpatient , if primary team wishes to discharge patient - cardiac work up as per primary - supportive care and resume home medication - no need for AED Medication Thanks for consult, would continue to follow with primary Fred Espinosa MD
[2017-09-07] MEDS ORDERED: INSULIN (NOVOLOG) ASPART 100 UNITS/ML 10ML VIAL ONE (11:32)
[2017-09-07] MEDS: LABETALOL HCL 100 MG TABLET (FP) PO SCH ×2 (11:37→21:51)
--- NOTE | 2017-09-07 12:50 | CON.ORTH ---
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 Cardio/Vascular: Yes: CAD (S/P PCI), HTN, Hyperlipdemia Pulmonary: Yes: COPD Gastrointestinal: Yes: GERD Musculoskeletal: Yes: Osteoarthritis Endocrine: Yes: Diabetes Mellitus - Past Surgical History Past Surgical History: Yes: Joint Replacement - Alcohol/Substance Use Hx Alcohol Use: No - Smoking History Smoking history: Never smoked Have you smoked in the past 12 months: No Home Medications - Allergies Allergies/Adverse Reactions: Allergies Allergy/AdvReac Type Severity Reaction Status Date / Time penicillin G Allergy Verified 09/05/17 19:37 - Home Medications Home Medications: Ambulatory Orders Acetaminophen [Tylenol] 325 mg PO Q4HWA 09/05/17 Amlodipine Besylate/Benazepril [Lotrel 5-40 mg Capsule] 1 each PO DAILY Apixaban [Eliquis] 2.5 mg PO DAILY 09/05/17 Aspirin [Aspirin EC] 81 mg PO DAILY 09/05/17 Donepezil HCl [Aricept -] 5 mg PO DAILY 09/05/17 Hydrochlorothiazide 25 mg PO DAILY 09/05/17 Labetalol HCl 300 mg PO BID 09/05/17 Oxycodone HCl 5 mg PO Q4HWA 09/05/17 Pantoprazole Sodium 40 mg PO DAILY 09/05/17 Pioglitazone HCl 15 mg PO DAILY 09/05/17 Rosuvastatin Calcium [Crestor] 10 mg PO HS 09/05/17 Sertraline HCl [Zoloft] 100 mg PO DAILY 09/05/17 Physical Exam for Ortho Vital Signs: Vital Signs Temperature 98.4 F 09/07/17 09:27 Pulse Rate 54 L 09/07/17 09:27 Respiratory Rate 18 09/07/17 09:27 Blood Pressure 111/45 09/07/17 09:27 O2 Sat by Pulse Oximetry (%) 93 L 09/06/17 21:00 Labs: CBC, BMP 09/07/17 06:00 09/07/17 06:00 INR, PTT INR 1.39 (0.82-1.09) H 09/05/17 21:53 - Lower Extremity Knee: Yes: Left, Pain, Swelling, Other (left knee- aquacel dressing c/d/i, nontender, rom 0-50, calf soft ,nt, nvi) Assessment/Plan 77 year old female with a past medical history of diabetes, HTN, alzheimer's, CHF s/p PPM, and recent left knee replacement (1 week ago), who presents to the emergency department with syncope. Family states that the patient was transferring from chair to bed when she went unresponsive. Granddaughter states that she was holding the patient in her arms to help her into bed when this occurred. She states that the pt's eyes rolled back and she went stiff. Patient was unconscious for 15 seconds total before returning to baseline. No seizure- like movements were witnessed. After the episode the patient had one episode of clear vomiting. Pt now denies any complaints other than fatigue. Denies ever having CP/SOB/palpitations. Pt states that she has had 3 left knee replacements. She does not remember name of surgeon or hospital. a/p- Left knee s/p revision TKR ?? 1 week ago xray ordered PT eval Knee is normal post-op appearance NTD f/u with surgeon upon d/c will follow d/w Dr. Larson
--- NOTE | 2017-09-07 13:32 | PN ---
Progress Note, Physician History of Present Illness: feels better in bed no complaints - Current Medication List Current Medications: Active Medications Acetaminophen (Tylenol -) 325 mg PO Q4H PRN PRN Reason: PAIN 1-5 Last Admin: 09/06/17 22:50 Dose: 325 mg Amlodipine Besylate (Norvasc -) 5 mg PO DAILY [facility] Last Admin: 09/06/17 10:50 Dose: 5 mg Apixaban (Eliquis -) 5 mg PO BID [facility] Last Admin: 09/07/17 09:19 Dose: 5 mg Aspirin (Ecotrin -) 81 mg PO DAILY [facility] Last Admin: 09/07/17 09:19 Dose: 81 mg Donepezil HCl (Aricept -) 5 mg PO DAILY [facility] Last Admin: 09/07/17 09:19 Dose: 5 mg Insulin Aspart (Novolog Vial Sliding Scale -) 1 vial SQ ACHS [facility] PRN Reason: Protocol Last Admin: 09/07/17 11:39 Dose: Not Given Labetalol HCl (Normodyne -) 300 mg PO BID [facility] Last Admin: 09/07/17 11:37 Dose: 300 mg Lisinopril (Prinivil) 40 mg PO DAILY [facility] Last Admin: 09/07/17 09:21 Dose: 40 mg Oxycodone HCl (Roxicodone -) 5 mg PO Q4H PRN PRN Reason: PAIN LEVEL 6-10 Last Admin: 09/06/17 22:48 Dose: 5 mg Pantoprazole Sodium (Protonix -) 40 mg PO DAILY [facility] Last Admin: 09/07/17 09:18 Dose: 40 mg Pioglitazone HCl (Actos -) 15 mg PO AM [facility] Last Admin: 09/07/17 06:10 Dose: 15 mg Rosuvastatin Calcium (Crestor -) 10 mg PO HS [facility] Last Admin: 09/06/17 22:50 Dose: 10 mg Sertraline HCl (Zoloft -) 100 mg PO DAILY [facility] Last Admin: 09/07/17 09:19 Dose: 100 mg - Objective Vital Signs: Vital Signs Temperature 98.4 F 09/07/17 09:27 Pulse Rate 54 L 09/07/17 09:27 Respiratory Rate 18 09/07/17 10:00 Blood Pressure 111/45 09/07/17 09:27 O2 Sat by Pulse Oximetry (%) 93 L 09/07/17 10:00 Cardiovascular: Yes: S1, S2 Respiratory: Yes: Regular, CTA Bilaterally Gastrointestinal: Yes: Normal Bowel Sounds, Soft Labs: CBC, BMP 09/07/17 06:00 09/07/17 06:00 INR, PTT INR 1.39 (0.82-1.09) H 09/05/17 21:53 Problem List - Problems (1) Syncope Assessment/Plan: CT OF HEAD NOTED--NAD NEUROLOGY CONSULT APPRECIATED TELEMETRY FOLLOW LABS D-DIMER HIGH--PULM CONSULT APPRECIATED Code(s): R55 - SYNCOPE AND COLLAPSE (2) CAD (coronary artery disease) Assessment/Plan: FOLLOW CE CARDIO Code(s): I25.10 - ATHSCL HEART DISEASE OF [place] CORONARY ARTERY W/O ANG PCTRS (3) HTN (hypertension) Assessment/Plan: SAME MEDS MONITOR Code(s): I10 - ESSENTIAL (PRIMARY) HYPERTENSION (4) Cardiac pacemaker in situ Assessment/Plan: INTERROGATION Code(s): Z95.0 - PRESENCE OF CARDIAC PACEMAKER (5) Status post knee replacement Assessment/Plan: OTHO CONSULT ON ELIQUIS 2.5 DAILY--INCREASE TO 5 MG BID DUPLEX OF LE Code(s): Z96.659 - PRESENCE OF UNSPECIFIED ARTIFICIAL KNEE JOINT Assessment/Plan PT WAS ON ELIQUIS 2.5 QD OUTPATIENT --NEED TO CLARIFY REASON ON IT
[2017-09-07] MEDS: amLODIPine BESYLATE 5 MG TABLET (FP) PO SCH (13:37)
[2017-09-07] MEDS ORDERED: PT OWN MED DRAWER 7, Y5N ONE (15:34)
[2017-09-07] MEDS: ROSUVASTATIN CA 10 MG TABLET (FP) PO SCH (21:52)
[2017-09-08] MEDS ORDERED: PT OWN MED DRAWER 7, Y5N ONE (05:24)
[2017-09-08] MEDS: INSULIN SLIDING SCALE (NOVOLOG) 1 VIAL SQ SCH ×4 (06:08→22:16)
[2017-09-08] MEDS: PIOGLITAZONE HCL 15 MG TABLET (FP) PO SCH (06:08)
--- NOTE | 2017-09-08 08:31 | PN ---
Progress Note (short form) - Note Progress Note: Ortho Pt seen and examined s/p left revision TKR done by outside surgeon Selected Entries 09/08/17 06:00 Temperature 97.7 F Pulse Rate 53 L Respiratory 20 Rate Blood Pressure 151/55 dressing c/d/i, brace in place, minimal swelling, nontender rom 0-50, calf soft, nt, nvi xrays show revision TKR in acceptable position a/p PT orthopedically stable NTD f/u with surgeon upon d/c d/w Dr. Larson
--- NOTE | 2017-09-08 09:02 | PN ---
Progress Note (short form) - Note Progress Note: 77 year old female history of DM, HTN ,Alzheimer disease, CHF , recent left knee replacement. She came to hospital for being unreponsive for few seconds. Her eye rolled back and she went siff, there was no seizure activity ( motor tonic or clonci acvity). There was no tongue bite or incontinence or post ictal confusion. She did have similar event in past. Neurological Examination Alert able to follow command, speech is ormal eomi, and no face asymmetry, pupils is reactive moving all extremity sensation is normal grossly CT Head was normal A/P 1/ Sycope, Unlikley to be Epileptic seizure. CT head is normal and neuro exam is unremarkable. -EEG pending, can be done outpatient , if primary team wishes to discharge patient - cardiac work up as per primary - supportive care and resume home medication - no need for AED Medication Thanks for consult, would continue to follow with primary Fred Espinosa MD
[2017-09-08] MEDS: SERTRALINE HCL 50 MG TABLET (FP) PO SCH (10:22)
[2017-09-08] MEDS: LISINOPRIL 20 MG TABLET (FP) PO SCH (10:22)
[2017-09-08] MEDS: PANTOPRAZOLE 40 MG TABLET (FP) PO SCH (10:22)
[2017-09-08] MEDS: DONEPEZIL HCL 5 MG TABLET (FP) PO SCH (10:22)
[2017-09-08] MEDS: ASPIRIN COATED 81 MG TABLET.EC PO SCH (10:22)
[2017-09-08] MEDS: APIXABAN 5 MG TABLET PO SCH ×2 (10:22→22:28)
[2017-09-08] MEDS: ACETAMINOPHEN 325 MG TABLET (FP) PO PRN (10:24)
--- NOTE | 2017-09-08 11:51 | PN ---
Progress Note, Physician Chief Complaint: patient seen in bed awake alert - Current Medication List Current Medications: Active Medications Acetaminophen (Tylenol -) 325 mg PO Q4H PRN PRN Reason: PAIN 1-5 Last Admin: 09/08/17 10:24 Dose: 325 mg Apixaban (Eliquis -) 5 mg PO BID [facility] Last Admin: 09/08/17 10:22 Dose: 5 mg Aspirin (Ecotrin -) 81 mg PO DAILY [facility] Last Admin: 09/08/17 10:22 Dose: 81 mg Donepezil HCl (Aricept -) 5 mg PO DAILY [facility] Last Admin: 09/08/17 10:22 Dose: 5 mg Insulin Aspart (Novolog Vial Sliding Scale -) 1 vial SQ ACHS [facility] PRN Reason: Protocol Last Admin: 09/08/17 11:24 Dose: Not Given Labetalol HCl (Normodyne -) 300 mg PO BID [facility] Last Admin: 09/07/17 21:51 Dose: 300 mg Lisinopril (Prinivil) 40 mg PO DAILY [facility] Last Admin: 09/08/17 10:22 Dose: 40 mg Oxycodone HCl (Roxicodone -) 5 mg PO Q4H PRN PRN Reason: PAIN LEVEL 6-10 Last Admin: 09/06/17 22:48 Dose: 5 mg Pantoprazole Sodium (Protonix -) 40 mg PO DAILY [facility] Last Admin: 09/08/17 10:22 Dose: 40 mg Pioglitazone HCl (Actos -) 15 mg PO AM [facility] Last Admin: 09/08/17 06:08 Dose: 15 mg Rosuvastatin Calcium (Crestor -) 10 mg PO HS [facility] Last Admin: 09/07/17 21:52 Dose: 10 mg Sertraline HCl (Zoloft -) 100 mg PO DAILY [facility] Last Admin: 09/08/17 10:22 Dose: 100 mg - Objective Vital Signs: Vital Signs Temperature 98.3 F 09/08/17 10:00 Pulse Rate 54 L 09/08/17 10:00 Respiratory Rate 20 09/08/17 10:00 Blood Pressure 123/55 09/08/17 10:00 O2 Sat by Pulse Oximetry (%) 98 09/08/17 09:00 Constitutional: Yes: Calm Cardiovascular: Yes: Regular Rate and Rhythm, S1, S2 Respiratory: Yes: CTA Bilaterally Gastrointestinal: Yes: Normal Bowel Sounds, Soft Musculoskeletal: Yes: Other (left knee aquacel dressing) Labs: CBC, BMP 09/07/17 06:00 09/07/17 06:00 INR, PTT INR 1.39 (0.82-1.09) H 09/05/17 21:53 Problem List - Problems (1) Syncope Assessment/Plan: echo - awaiting test result seen by cardiology needs PPM interrogation- awaiting family to give info at pacemaker Code(s): R55 - SYNCOPE AND COLLAPSE (2) HTN (hypertension) Assessment/Plan: continue current meds Code(s): I10 - ESSENTIAL (PRIMARY) HYPERTENSION (3) Status post knee replacement Assessment/Plan: seen by ortho Code(s): Z96.659 - PRESENCE OF UNSPECIFIED ARTIFICIAL KNEE JOINT (4) Renal disease Assessment/Plan: renal evaluation renal sono ordered Code(s): N28.9 - DISORDER OF KIDNEY AND URETER, UNSPECIFIED
[2017-09-08] MEDS: LABETALOL HCL 100 MG TABLET (FP) PO SCH ×2 (12:18→22:28)
--- NOTE | 2017-09-08 14:37 | CONSULT ---
Consult Consult Specialty:: Nephrology Reason for Consultation:: elevated creatinine - History of Present Illness Chief Complaint: syncope History of Present Illness: Pt is a 77 year old female with pmhx of HTN, DM, dementia, CHF, PPM and left knee replacement who presents to the ER after an episode of syncope. She was unresponsive for about 15 minutes. Pt is a poor historian and does not remember the episode. I was called to evaluate her for elevated creatinine. She does not know if she has history of CKD. She denies dysuria or hematuria. She denies chest pain or shortness of breath. 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 Cardio/Vascular: Yes: CAD (S/P PCI), HTN, Hyperlipdemia Pulmonary: Yes: COPD Gastrointestinal: Yes: GERD Musculoskeletal: Yes: Osteoarthritis Endocrine: Yes: Diabetes Mellitus - Past Surgical History Past Surgical History: Yes: Joint Replacement - Alcohol/Substance Use Hx Alcohol Use: No - Smoking History Smoking history: Never smoked Have you smoked in the past 12 months: No Home Medications - Allergies Allergies/Adverse Reactions: Allergies Allergy/AdvReac Type Severity Reaction Status Date / Time penicillin G Allergy Verified 09/05/17 19:37 - Home Medications Home Medications: Ambulatory Orders Acetaminophen [Tylenol] 325 mg PO Q4HWA 09/05/17 Amlodipine Besylate/Benazepril [Lotrel 5-40 mg Capsule] 1 each PO DAILY Apixaban [Eliquis] 2.5 mg PO DAILY 09/05/17 Aspirin [Aspirin EC] 81 mg PO DAILY 09/05/17 Donepezil HCl [Aricept -] 5 mg PO DAILY 09/05/17 Hydrochlorothiazide 25 mg PO DAILY 09/05/17 Labetalol HCl 300 mg PO BID 09/05/17 Oxycodone HCl 5 mg PO Q4HWA 09/05/17 Pantoprazole Sodium 40 mg PO DAILY 09/05/17 Pioglitazone HCl 15 mg PO DAILY 09/05/17 Rosuvastatin Calcium [Crestor] 10 mg PO HS 09/05/17 Sertraline HCl [Zoloft] 100 mg PO DAILY 09/05/17 Family Disease History - Family Disease History Family History: Denies Review of Systems - Review of Systems Constitutional: reports: No Symptoms Eyes: reports: No Symptoms HENT: reports: No Symptoms Neck: reports: No Symptoms Cardiovascular: reports: No Symptoms Respiratory: reports: No Symptoms Gastrointestinal: reports: No Symptoms Genitourinary: reports: No Symptoms Musculoskeletal: reports: Extremity Pain, Joint Pain Integumentary: reports: No Symptoms Neurological: reports: No Symptoms, Pre-Existing Deficit Endocrine: reports: No Symptoms Psychiatric: reports: No Symptoms Physical Exam Vital Signs: Vital Signs Temperature 98.3 F 09/08/17 10:00 Pulse Rate 54 L 09/08/17 10:00 Respiratory Rate 20 09/08/17 10:00 Blood Pressure 123/55 09/08/17 10:00 O2 Sat by Pulse Oximetry (%) 98 09/08/17 09:00 Constitutional: Yes: Calm Eyes: Yes: Conjunctiva Clear HENT: Yes: Atraumatic Neck: Yes: Supple Cardiovascular: Yes: S1, S2 Respiratory: Yes: CTA Bilaterally Gastrointestinal: Yes: Soft, Abdomen, Obese Renal/: Yes: WNL Musculoskeletal: Yes: Other (left leg brace in place) Edema: Yes Edema: LLE: Trace, RLE: Trace Neurological: Yes: Oriented Psychiatric: Yes: Oriented Labs: CBC, BMP 09/07/17 06:00 09/07/17 06:00 Laboratory Tests 09/05/17 09/05/17 09/06/17 21:53 23:22 08:30 Hgb 9.8 L Creatinine 1.9 H Urine Protein Negative Urine Blood Negative 09/07/17 09/07/17 06:00 06:00 Hgb 9.6 L Creatinine 2.0 H Urine Protein Urine Blood Imaging - Results Chest X-ray: Report Reviewed Cat Scan: Report Reviewed Problem List - Problems (1) CAD (coronary artery disease) Code(s): I25.10 - ATHSCL HEART DISEASE OF [place] CORONARY ARTERY W/O ANG PCTRS (2) Cardiac pacemaker in situ Code(s): Z95.0 - PRESENCE OF CARDIAC PACEMAKER (3) HTN (hypertension) Code(s): I10 - ESSENTIAL (PRIMARY) HYPERTENSION (4) Renal disease Code(s): N28.9 - DISORDER OF KIDNEY AND URETER, UNSPECIFIED (5) Status post knee replacement Code(s): Z96.659 - PRESENCE OF UNSPECIFIED ARTIFICIAL KNEE JOINT (6) Syncope Code(s): R55 - SYNCOPE AND COLLAPSE Assessment/Plan Current Medications Generic Name Dose Route Start Last Admin Trade Name Kasiq PRN Reason Stop Dose Admin Acetaminophen 325 mg 09/06/17 10:52 09/08/17 10:24 Tylenol - PO 325 mg Q4H PRN Administration PAIN 1-5 Apixaban 5 mg 09/06/17 22:00 09/08/17 10:22 Eliquis - PO 5 mg BID [facility] Administration Aspirin 81 mg 09/06/17 10:00 09/08/17 10:22 Ecotrin - PO 81 mg DAILY [facility] Administration Donepezil HCl 5 mg 09/06/17 10:00 09/08/17 10:22 Aricept - PO 5 mg DAILY [facility] Administration Insulin Aspart 1 vial 09/06/17 11:00 09/08/17 11:24 Novolog Vial Sliding Scale - SQ Not Given ACHS [facility] Protocol Labetalol HCl 300 mg 09/06/17 10:00 09/08/17 12:18 Normodyne - PO Not Given BID [facility] Lisinopril 40 mg 09/06/17 10:00 09/08/17 10:22 Prinivil PO 40 mg DAILY [facility] Administration Oxycodone HCl 5 mg 09/06/17 07:18 09/06/17 22:48 Roxicodone - PO 5 mg Q4H PRN Administration PAIN LEVEL 6-10 Pantoprazole Sodium 40 mg 09/06/17 10:00 09/08/17 10:22 Protonix - PO 40 mg DAILY [facility] Administration Pioglitazone HCl 15 mg 09/06/17 10:00 09/08/17 06:08 Actos - PO 15 mg AM [facility] Administration Rosuvastatin Calcium 10 mg 09/06/17 22:00 09/07/17 21:52 Crestor - PO 10 mg HS [facility] Administration Sertraline HCl 100 mg 09/06/17 10:00 09/08/17 10:22 Zoloft - PO 100 mg DAILY [facility] Administration Impression 1. likely CKD 2. syncope 3. s/p knee replacement 4. HTN 5. DM 6. chol 7. dementia Plan - follow up renal ultrasound - will need to review outpt labs - repeat bmp in am - avoid nsaids - workup per neuro/cardio - can cont haseeb for now Dr Peralta
[2017-09-08] MEDS: ROSUVASTATIN CA 10 MG TABLET (FP) PO SCH (22:28)
[2017-09-09] MEDS: INSULIN SLIDING SCALE (NOVOLOG) 1 VIAL SQ SCH ×4 (06:53→21:47)
[2017-09-09] MEDS ORDERED: PT OWN MED DRAWER 7, Y5N ONE ×2 (06:56→07:13)
[2017-09-09] MEDS: PIOGLITAZONE HCL 15 MG TABLET (FP) PO SCH (07:10)
[2017-09-09 08:30] LABS: ANION GAP 6 (8-16); CALCIUM 8.7 mg/dL (8.5-10.1); CO2 30 mmol/L (21-32); CREATININE 1.2 mg/dL (0.55-1.02); GLUCOSE,RANDOM 125 mg/dL (74-106)
--- NOTE | 2017-09-09 08:50 | PN ---
Progress Note, Physician - Current Medication List Current Medications: Active Medications Acetaminophen (Tylenol -) 325 mg PO Q4H PRN PRN Reason: PAIN 1-5 Last Admin: 09/08/17 10:24 Dose: 325 mg Apixaban (Eliquis -) 5 mg PO BID [facility] Last Admin: 09/08/17 22:28 Dose: 5 mg Aspirin (Ecotrin -) 81 mg PO DAILY [facility] Last Admin: 09/08/17 10:22 Dose: 81 mg Donepezil HCl (Aricept -) 5 mg PO DAILY [facility] Last Admin: 09/08/17 10:22 Dose: 5 mg Insulin Aspart (Novolog Vial Sliding Scale -) 1 vial SQ ACHS [facility] PRN Reason: Protocol Last Admin: 09/09/17 06:53 Dose: Not Given Labetalol HCl (Normodyne -) 300 mg PO BID [facility] Last Admin: 09/08/17 22:28 Dose: 300 mg Lisinopril (Prinivil) 40 mg PO DAILY [facility] Last Admin: 09/08/17 10:22 Dose: 40 mg Pantoprazole Sodium (Protonix -) 40 mg PO DAILY [facility] Last Admin: 09/08/17 10:22 Dose: 40 mg Pioglitazone HCl (Actos -) 15 mg PO AM [facility] Last Admin: 09/09/17 07:10 Dose: 15 mg Rosuvastatin Calcium (Crestor -) 10 mg PO HS [facility] Last Admin: 09/08/17 22:28 Dose: 10 mg Sertraline HCl (Zoloft -) 100 mg PO DAILY [facility] Last Admin: 09/08/17 10:22 Dose: 100 mg - Objective Vital Signs: Vital Signs Temperature 98.4 F 09/09/17 05:25 Pulse Rate 59 L 09/09/17 05:25 Respiratory Rate 20 09/09/17 05:25 Blood Pressure 156/71 09/09/17 05:25 O2 Sat by Pulse Oximetry (%) 96 09/08/17 21:00 Labs: CBC, BMP 09/07/17 06:00 09/09/17 06:50 INR, PTT INR 1.39 (0.82-1.09) H 09/05/17 21:53 Problem List - Problems (1) Syncope Code(s): R55 - SYNCOPE AND COLLAPSE (2) CAD (coronary artery disease) Code(s): I25.10 - ATHSCL HEART DISEASE OF [place] CORONARY ARTERY W/O ANG PCTRS (3) HTN (hypertension) Code(s): I10 - ESSENTIAL (PRIMARY) HYPERTENSION (4) Cardiac pacemaker in situ Code(s): Z95.0 - PRESENCE OF CARDIAC PACEMAKER (5) Status post knee replacement Code(s): Z96.659 - PRESENCE OF UNSPECIFIED ARTIFICIAL KNEE JOINT Assessment/Plan - Problems (1) Syncope Assessment/Plan: echo - nl lv function seen by cardiology needs PPM interrogation- awaiting family to give info at pacemaker Code(s): R55 - SYNCOPE AND COLLAPSE (2) HTN (hypertension) Assessment/Plan: continue current meds Code(s): I10 - ESSENTIAL (PRIMARY) HYPERTENSION (3) Status post knee replacement Assessment/Plan: seen by ortho Code(s): Z96.659 - PRESENCE OF UNSPECIFIED ARTIFICIAL KNEE JOINT (4) Renal disease Assessment/Plan: renal evaluation renal sono ordered Code(s): N28.9 - DISORDER OF KIDNEY AND URETER, UNSPECIFIED
[2017-09-09] MEDS: APIXABAN 5 MG TABLET PO SCH ×2 (10:09→21:47)
[2017-09-09] MEDS: ASPIRIN COATED 81 MG TABLET.EC PO SCH (10:09)
[2017-09-09] MEDS: LABETALOL HCL 100 MG TABLET (FP) PO SCH ×2 (10:19→21:47)
[2017-09-09] MEDS: PANTOPRAZOLE 40 MG TABLET (FP) PO SCH (10:19)
[2017-09-09] MEDS: SERTRALINE HCL 50 MG TABLET (FP) PO SCH (10:20)
[2017-09-09] MEDS: DONEPEZIL HCL 5 MG TABLET (FP) PO SCH (10:20)
[2017-09-09] MEDS: LISINOPRIL 20 MG TABLET (FP) PO SCH (10:20)
--- NOTE | 2017-09-09 13:15 | PN ---
Progress Note, Physician History of Present Illness: PULMONARY ALERT,NAD,-C/O SOB,-CP - Current Medication List Current Medications: Active Medications Acetaminophen (Tylenol -) 325 mg PO Q4H PRN PRN Reason: PAIN 1-5 Last Admin: 09/08/17 10:24 Dose: 325 mg Apixaban (Eliquis -) 5 mg PO BID [facility] Last Admin: 09/09/17 10:09 Dose: 5 mg Aspirin (Ecotrin -) 81 mg PO DAILY [facility] Last Admin: 09/09/17 10:09 Dose: 81 mg Donepezil HCl (Aricept -) 5 mg PO DAILY [facility] Last Admin: 09/09/17 10:20 Dose: 5 mg Insulin Aspart (Novolog Vial Sliding Scale -) 1 vial SQ ACHS [facility] PRN Reason: Protocol Last Admin: 09/09/17 11:27 Dose: Not Given Labetalol HCl (Normodyne -) 300 mg PO BID [facility] Last Admin: 09/09/17 10:19 Dose: 300 mg Lisinopril (Prinivil) 40 mg PO DAILY [facility] Last Admin: 09/09/17 10:20 Dose: 40 mg Pantoprazole Sodium (Protonix -) 40 mg PO DAILY [facility] Last Admin: 09/09/17 10:19 Dose: 40 mg Pioglitazone HCl (Actos -) 15 mg PO AM [facility] Last Admin: 09/09/17 07:10 Dose: 15 mg Rosuvastatin Calcium (Crestor -) 10 mg PO HS [facility] Last Admin: 09/08/17 22:28 Dose: 10 mg Sertraline HCl (Zoloft -) 100 mg PO DAILY [facility] Last Admin: 09/09/17 10:20 Dose: 100 mg - Objective Vital Signs: Vital Signs Temperature 98.4 F 09/09/17 05:25 Pulse Rate 59 L 09/09/17 05:25 Respiratory Rate 20 09/09/17 05:25 Blood Pressure 156/71 09/09/17 05:25 O2 Sat by Pulse Oximetry (%) 96 09/08/17 21:00 Constitutional: Yes: Well Nourished, Calm Eyes: Yes: WNL HENT: Yes: WNL Neck: Yes: WNL Cardiovascular: Yes: Regular Rate and Rhythm, S1, S2 Respiratory: Yes: CTA Bilaterally Gastrointestinal: Yes: Normal Bowel Sounds, Soft Extremities: Yes: WNL Edema: Yes Edema: LLE: Trace, RLE: Trace Labs: CBC, BMP 09/07/17 06:00 09/09/17 06:50 INR, PTT INR 1.39 (0.82-1.09) H 09/05/17 21:53 Assessment/Plan Problem List - Problems (1) Cardiac pacemaker in situ Code(s): Z95.0 - PRESENCE OF CARDIAC PACEMAKER (2) HTN (hypertension) Code(s): I10 - ESSENTIAL (PRIMARY) HYPERTENSION (3) Status post knee replacement Code(s): Z96.659 - PRESENCE OF UNSPECIFIED ARTIFICIAL KNEE JOINT (4) Syncope Code(s): R55 - SYNCOPE AND COLLAPSE Assessment/Plan Syncope Recent Knee Surgery HTN CHF Dementia Pulmonary Htn - elevated d-dimer is nonspecific especially after recent surgery - repeat LE dopplers were negative, pt without symptoms, not tachycardic or hypoxic, so PE would be less likely - no need for V/Q pt on Eliquis for afib DR SIMPSON
--- NOTE | 2017-09-09 13:28 | PN ---
Progress Note, Physician Chief Complaint: Syncope History of Present Illness: Syncope - Current Medication List Current Medications: Active Medications Acetaminophen (Tylenol -) 325 mg PO Q4H PRN PRN Reason: PAIN 1-5 Last Admin: 09/08/17 10:24 Dose: 325 mg Apixaban (Eliquis -) 5 mg PO BID [facility] Last Admin: 09/09/17 10:09 Dose: 5 mg Aspirin (Ecotrin -) 81 mg PO DAILY [facility] Last Admin: 09/09/17 10:09 Dose: 81 mg Donepezil HCl (Aricept -) 5 mg PO DAILY [facility] Last Admin: 09/09/17 10:20 Dose: 5 mg Insulin Aspart (Novolog Vial Sliding Scale -) 1 vial SQ ACHS [facility] PRN Reason: Protocol Last Admin: 09/09/17 11:27 Dose: Not Given Labetalol HCl (Normodyne -) 300 mg PO BID [facility] Last Admin: 09/09/17 10:19 Dose: 300 mg Lisinopril (Prinivil) 40 mg PO DAILY [facility] Last Admin: 09/09/17 10:20 Dose: 40 mg Pantoprazole Sodium (Protonix -) 40 mg PO DAILY [facility] Last Admin: 09/09/17 10:19 Dose: 40 mg Pioglitazone HCl (Actos -) 15 mg PO AM [facility] Last Admin: 09/09/17 07:10 Dose: 15 mg Rosuvastatin Calcium (Crestor -) 10 mg PO HS [facility] Last Admin: 09/08/17 22:28 Dose: 10 mg Sertraline HCl (Zoloft -) 100 mg PO DAILY [facility] Last Admin: 09/09/17 10:20 Dose: 100 mg - Objective Vital Signs: Vital Signs Temperature 98.4 F 09/09/17 05:25 Pulse Rate 59 L 09/09/17 05:25 Respiratory Rate 20 09/09/17 05:25 Blood Pressure 156/71 09/09/17 05:25 O2 Sat by Pulse Oximetry (%) 96 09/08/17 21:00 Constitutional: Yes: No Distress, Calm, Obese Eyes: Yes: WNL, Conjunctiva Clear HENT: Yes: WNL, Atraumatic, Normocephalic Neck: Yes: WNL, Supple, Trachea Midline Cardiovascular: Yes: WNL, Regular Rate and Rhythm Respiratory: Yes: WNL, Regular, CTA Bilaterally Gastrointestinal: Yes: WNL, Normal Bowel Sounds, Soft ...Rectal Exam: Yes: Deferred Genitourinary: Yes: WNL Musculoskeletal: Yes: WNL Edema: LLE: Trace, RLE: Trace Peripheral Pulses WNL: Yes Integumentary: Yes: WNL Neurological: Yes: WNL Labs: CBC, BMP 09/07/17 06:00 09/09/17 06:50 INR, PTT INR 1.39 (0.82-1.09) H 09/05/17 21:53 Assessment/Plan The patient looks comfortable. Denies chest pains. Admits to mild dyspnea. The echocardiogram showed both ventricles are functioning normally. Pacemaker interrogation is still pending. Please start Lasix 40 mg IV twice a day. Salt restrictions. Encourage ambulation. The patient is improving symptomatically and clinically.
--- NOTE | 2017-09-09 14:09 | PN ---
Progress Note, Physician History of Present Illness: Pt seen and examined at bedside. She appears comfortable. She denies shortness of breath. - Current Medication List Current Medications: Active Medications Acetaminophen (Tylenol -) 325 mg PO Q4H PRN PRN Reason: PAIN 1-5 Last Admin: 09/08/17 10:24 Dose: 325 mg Apixaban (Eliquis -) 5 mg PO BID [facility] Last Admin: 09/09/17 10:09 Dose: 5 mg Aspirin (Ecotrin -) 81 mg PO DAILY [facility] Last Admin: 09/09/17 10:09 Dose: 81 mg Donepezil HCl (Aricept -) 5 mg PO DAILY [facility] Last Admin: 09/09/17 10:20 Dose: 5 mg Insulin Aspart (Novolog Vial Sliding Scale -) 1 vial SQ ACHS [facility] PRN Reason: Protocol Last Admin: 09/09/17 11:27 Dose: Not Given Labetalol HCl (Normodyne -) 300 mg PO BID [facility] Last Admin: 09/09/17 10:19 Dose: 300 mg Lisinopril (Prinivil) 40 mg PO DAILY [facility] Last Admin: 09/09/17 10:20 Dose: 40 mg Pantoprazole Sodium (Protonix -) 40 mg PO DAILY [facility] Last Admin: 09/09/17 10:19 Dose: 40 mg Pioglitazone HCl (Actos -) 15 mg PO AM [facility] Last Admin: 09/09/17 07:10 Dose: 15 mg Rosuvastatin Calcium (Crestor -) 10 mg PO HS [facility] Last Admin: 09/08/17 22:28 Dose: 10 mg Sertraline HCl (Zoloft -) 100 mg PO DAILY [facility] Last Admin: 09/09/17 10:20 Dose: 100 mg - Objective Vital Signs: Vital Signs Temperature 98.4 F 09/09/17 05:25 Pulse Rate 59 L 09/09/17 05:25 Respiratory Rate 20 09/09/17 05:25 Blood Pressure 156/71 09/09/17 05:25 O2 Sat by Pulse Oximetry (%) 96 09/08/17 21:00 Constitutional: Yes: Calm Eyes: Yes: Conjunctiva Clear HENT: Yes: Atraumatic Cardiovascular: Yes: S1, S2 Respiratory: Yes: CTA Bilaterally Gastrointestinal: Yes: Soft Musculoskeletal: Yes: Other (left leg pain) Edema: Yes Neurological: Yes: Oriented Psychiatric: Yes: Oriented Labs: CBC, BMP 09/07/17 06:00 09/09/17 06:50 INR, PTT INR 1.39 (0.82-1.09) H 09/05/17 21:53 Problem List - Problems (1) CAD (coronary artery disease) Code(s): I25.10 - ATHSCL HEART DISEASE OF [place] CORONARY ARTERY W/O ANG PCTRS (2) Cardiac pacemaker in situ Code(s): Z95.0 - PRESENCE OF CARDIAC PACEMAKER (3) HTN (hypertension) Code(s): I10 - ESSENTIAL (PRIMARY) HYPERTENSION (4) Renal disease Code(s): N28.9 - DISORDER OF KIDNEY AND URETER, UNSPECIFIED (5) Status post knee replacement Code(s): Z96.659 - PRESENCE OF UNSPECIFIED ARTIFICIAL KNEE JOINT (6) Syncope Code(s): R55 - SYNCOPE AND COLLAPSE Assessment/Plan Current Medications Generic Name Dose Route Start Last Admin Trade Name Freq PRN Reason Stop Dose Admin Acetaminophen 325 mg 09/06/17 10:52 09/08/17 10:24 Tylenol - PO 325 mg Q4H PRN Administration PAIN 1-5 Apixaban 5 mg 09/06/17 22:00 09/09/17 10:09 Eliquis - PO 5 mg BID [facility] Administration Aspirin 81 mg 09/06/17 10:00 09/09/17 10:09 Ecotrin - PO 81 mg DAILY [facility] Administration Donepezil HCl 5 mg 09/06/17 10:00 09/09/17 10:20 Aricept - PO 5 mg DAILY [facility] Administration Insulin Aspart 1 vial 09/06/17 11:00 09/09/17 11:27 Novolog Vial Sliding Scale - SQ Not Given ACHS [facility] Protocol Labetalol HCl 300 mg 09/06/17 10:00 09/09/17 10:19 Normodyne - PO 300 mg BID [facility] Administration Lisinopril 40 mg 09/06/17 10:00 09/09/17 10:20 Prinivil PO 40 mg DAILY [facility] Administration Pantoprazole Sodium 40 mg 09/06/17 10:00 09/09/17 10:19 Protonix - PO 40 mg DAILY [facility] Administration Pioglitazone HCl 15 mg 09/06/17 10:00 09/09/17 07:10 Actos - PO 15 mg AM [facility] Administration Rosuvastatin Calcium 10 mg 09/06/17 22:00 09/08/17 22:28 Crestor - PO 10 mg HS [facility] Administration Sertraline HCl 100 mg 09/06/17 10:00 09/09/17 10:20 Zoloft - PO 100 mg DAILY [facility] Administration Impression 1. likely CKD 2. syncope 3. s/p knee replacement 4. HTN 5. DM 6. chol 7. dementia Plan - renal ultrasound reviewed and kidneys are echogenic - creatinine is improved - cardio input appreciated - pt to be started on lasix - PPM interogation - avoid nsaids - workup per neuro/cardio - can cont haseeb for now Dr Peralta
[2017-09-09] MEDS: FUROSEMIDE 40 MG TABLET (FP) PO SCH (15:36)
[2017-09-09] MEDS: ROSUVASTATIN CA 10 MG TABLET (FP) PO SCH (21:47)
--- NOTE | 2017-09-10 02:05 | HOSP ---
Subjective - Review of Symptoms Subjective: Called for pt. with AMS, lethargy Pt. Moaning at bedside and unable to follow commands VS: 156/82 RR 18, 02 98 RA, T 98 CARD: RRR S1, S2 RESP: Decreased BS at bases ABD: BSx4 EXT: L. Ext Dressing CBCD WBC 9.6 K/mm3 (4.0-10.0) 09/07/17 06:00 RBC 3.52 M/mm3 (3.60-5.2) L 09/07/17 06:00 Hgb 9.6 GM/dL (10.7-15.3) L 09/07/17 06:00 Hct 29.2 % (32.4-45.2) L 09/07/17 06:00 MCV 82.7 fl (80-96) 09/07/17 06:00 MCHC 33.0 g/dl (32.0-36.0) 09/07/17 06:00 RDW 15.3 % (11.6-15.6) 09/07/17 06:00 Plt Count 320 K/MM3 (134-434) 09/07/17 06:00 MPV 10.7 fl (7.5-11.1) 09/07/17 06:00 CMP Sodium 141 mmol/L (136-145) 09/09/17 06:50 Potassium 4.2 mmol/L (3.5-5.1) 09/09/17 06:50 Chloride 105 mmol/L (98-107) 09/09/17 06:50 Carbon Dioxide 30 mmol/L (21-32) 09/09/17 06:50 Anion Gap 6 (8-16) L 09/09/17 06:50 BUN 28 mg/dL (7-18) H D 09/09/17 06:50 Creatinine 1.2 mg/dL (0.55-1.02) H D 09/09/17 06:50 Creat Clearance w eGFR 24.03 (>60) 09/07/17 06:00 Random Glucose 125 mg/dL (74-106) H D 09/09/17 06:50 Calcium 8.7 mg/dL (8.5-10.1) 09/09/17 06:50 Total Bilirubin 0.4 mg/dL (0.2-1.0) 09/07/17 06:00 AST 14 U/L (15-37) L 09/07/17 06:00 ALT 18 U/L (12-78) D 09/07/17 06:00 Alkaline Phosphatase 106 U/L (45-117) 09/07/17 06:00 Total Protein 6.4 g/dl (6.4-8.2) 09/07/17 06:00 Albumin 3.1 g/dl (3.4-5.0) L 09/07/17 06:00 CARDIAC ENZYMES Creatine Kinase 82 IU/L (26-192) 09/07/17 06:00 Troponin I < 0.02 ng/ml (0.00-0.05) 09/07/17 06:00 BS 122 AMS - DDX: UTI/PNA vs. CVA - CT HEAD wo CON ( new AMS since yesterday as pt. was awake and aware the day prior) - Ua, UCx, CXR - Repeat Labs including CBC, Lytes - Will Monitor Physical Examination Vital Signs: Vital Signs Temperature 98.4 F 09/09/17 21:00 Pulse Rate 65 09/10/17 01:45 Respiratory Rate 18 09/10/17 01:45 Blood Pressure 159/61 09/10/17 01:45 O2 Sat by Pulse Oximetry (%) 95 09/09/17 21:00 Labs: CBC, BMP 09/07/17 06:00 09/09/17 06:50
[2017-09-10 02:25] LABS: MCH 27.3 pg (25.7-33.7); MCHC 33.1 g/dl (32.0-36.0); MEAN CELL VOLUME 82.4 fl (80-96); MEAN PLT VOLUME 10.4 fl (7.5-11.1); PLATELET COUNT 329 K/MM3 (134-434); RDW 15.3 % (11.6-15.6); WHITE BLOOD COUNT 10.5 K/mm3 (4.0-10.0)
[2017-09-10 02:56] LABS: ALBUMIN 3.3 g/dl (3.4-5.0); ALK PHOS 116 U/L (45-117); ANION GAP 8 (8-16); BILIRUBIN,TOTAL 0.5 mg/dL (0.2-1.0); CALCIUM 8.9 mg/dL (8.5-10.1); CO2 30 mmol/L (21-32); CREATININE 1.4 mg/dL (0.55-1.02); GLUCOSE,RANDOM 119 mg/dL (74-106); SGOT/AST 21 U/L (15-37); SGPT/ALT 21 U/L (12-78); TOT PROT 6.8 g/dl (6.4-8.2)
[2017-09-10 05:44] LABS: PH,URINE 6.5 (5.0-8.0); URINE APPEARANCE CLEAR; URINE BILIRUBIN NEGATIVE (NEGATIVE); URINE COLOR LT. YELLOW; URINE GLUCOSE (UA) NEGATIVE (NEGATIVE); URINE KETONE NEGATIVE (NEGATIVE); URINE NITRITE NEGATIVE (NEGATIVE); URINE PROTEIN NEGATIVE (NEGATIVE); URINE UROBILINOGEN 0.2 mg/dL (0.2-1.0)
[2017-09-10] MEDS ORDERED: PT OWN MED DRAWER 7, Y5N ONE (06:15)
[2017-09-10] MEDS: PIOGLITAZONE HCL 15 MG TABLET (FP) PO SCH (06:33)
[2017-09-10] MEDS: INSULIN SLIDING SCALE (NOVOLOG) 1 VIAL SQ SCH ×4 (06:33→21:58)
[2017-09-10 07:14] LABS: URINE BLOOD Trace-intact (NEGATIVE)
[2017-09-10 07:17] LABS: URINE BACTERIA FEW /hpf (NONE SEEN); URINE RBC 0-3 /hpf (0-3)
--- NOTE | 2017-09-10 08:38 | PN ---
Progress Note (short form) - Note Progress Note: 77 year old female history of DM, HTN ,Alzheimer disease, CHF , recent left knee replacement. She came to hospital for being unreponsive for few seconds. Her eye rolled back and she went siff, there was no seizure activity ( motor tonic or clonci acvity). There was no tongue bite or incontinence or post ictal confusion. She did have similar event in past. Last night she became very agitated and had to be restrained and she injured her wrist. Patient is now back to her baseline. She was sent for xray of chest , ct head and blood test. Neurological Examination Alert able to follow command, speech is ormal, she is oriented x 2, she is able to tell she is in hospital, today is friday and august. She says she lives in apartment and in [place], and no face asymmetry, pupils is reactive moving all extremity sensation is normal grossly CT Head was normal repeat ct head and electrolytes are pending A/P 1/ Sycope, Unlikley to be Epileptic seizure. CT head is normal and neuro exam is unremarkable. - cardiac work up as per primary - supportive care and resume home medication - no need for AED Medication 2. Episode of agitation and confusion, likely be due to dementia, unlikley to be seizure episode or stroke. CT head , I looked , does not seems to be anything acute but will follow official report and follow blood test results continue to watch, avoid dehydration, regular sleep cycle , avoid constipation and would increase aricept to 10 mg qhs may use haldol prn for agitation. Fred Espinosa MD
[2017-09-10 08:57] LABS: ANION GAP 10 (8-16); CALCIUM 8.8 mg/dL (8.5-10.1); CO2 28 mmol/L (21-32); CREATININE 1.3 mg/dL (0.55-1.02); GLUCOSE,RANDOM 111 mg/dL (74-106)
[2017-09-10] MEDS: SERTRALINE HCL 50 MG TABLET (FP) PO SCH (09:08)
[2017-09-10] MEDS: PANTOPRAZOLE 40 MG TABLET (FP) PO SCH (09:08)
[2017-09-10] MEDS: FUROSEMIDE 40 MG TABLET (FP) PO SCH (09:08)
[2017-09-10] MEDS: LISINOPRIL 20 MG TABLET (FP) PO SCH (09:08)
[2017-09-10] MEDS: APIXABAN 5 MG TABLET PO SCH ×2 (09:08→21:56)
[2017-09-10] MEDS: ASPIRIN COATED 81 MG TABLET.EC PO SCH (09:08)
[2017-09-10] MEDS: LABETALOL HCL 100 MG TABLET (FP) PO SCH ×2 (09:09→21:55)
--- NOTE | 2017-09-10 09:39 | DS ---
Physical Examination Vital Signs: Vital Signs Temperature 97.8 F 09/10/17 06:00 Pulse Rate 56 L 09/10/17 06:00 Respiratory Rate 18 09/10/17 06:00 Blood Pressure 155/68 09/10/17 06:00 O2 Sat by Pulse Oximetry (%) 95 09/09/17 21:00 Cardiovascular: Yes: S1, S2 Respiratory: Yes: Regular, CTA Bilaterally Gastrointestinal: Yes: Normal Bowel Sounds, Soft Labs: CBC, BMP 09/10/17 02:00 09/10/17 05:35 Discharge Summary Reason For Visit: SYNCOPE Current Active Problems CAD (coronary artery disease) (Acute) Cardiac pacemaker in situ (Acute) HTN (hypertension) (Acute) Renal disease (Acute) Status post knee replacement (Acute) Syncope (Acute) Hospital Course: 77 year old female with a past medical history of diabetes, HTN, alzheimer's, CHF s/p PPM, and recent left knee replacement (1 week ago), who presents to the emergency department with syncope. Family states that the patient was transferring from chair to bed when she went unresponsive. Granddaughter states that she was holding the patient in her arms to help her into bed when this occurred. She states that the pt's eyes rolled back and she went stiff. Patient was unconscious for 15 seconds total before returning to baseline. No seizure- like movements were witnessed. After the episode the patient had one episode of clear vomiting. Pt now denies any complaints other than fatigue. Denies ever having CP/SOB/palpitations. Family states that this is not the first time this has happened. SHe has had 2- 3 witnessed syncopal events in the past 3 months. However, she has never seen a doctor regarding these episodes. 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 Cardiovascular: Yes: CAD (S/P PCI), HTN, Hyperlipdemia Pulmonary: Yes: COPD Gastrointestinal: Yes: GERD Musculoskeletal: Yes: Osteoarthritis Endocrine: Yes: Diabetes Mellitus - Past Surgical History Past Surgical History: Yes: Joint Replacement - Problems (1) Syncope Assessment/Plan: echo - nl lv function seen by cardiology needs PPM interrogation- awaiting family to give info at pacemaker Code(s): R55 - SYNCOPE AND COLLAPSE (2) HTN (hypertension) Assessment/Plan: continue current meds Code(s): I10 - ESSENTIAL (PRIMARY) HYPERTENSION (3) Status post knee replacement Assessment/Plan: seen by ortho pt dc [place] Code(s): Z96.659 - PRESENCE OF UNSPECIFIED ARTIFICIAL KNEE JOINT (4) Renal disease Assessment/Plan: renal evaluation renal sono Code(s): N28.9 - DISORDER OF KIDNEY AND URETER, UNSPECIFIED (5) Dementia Assessment/Plan: periods of confusion increase aricept rpeat ct noted (6) laceration Assessment/Plan: local care (7) Elevated d-dimer--has been on eliquis qd on admission Assessment/Plan: d/w dr odell difficult to do v/q scan and pt history unlear why on eliquis best to treat for 6 months of eliquis then evaluate - Instructions Referrals: Perlita Olivera MD [Primary Care Provider] - - Home Medications Comprehensive Discharge Medication List: Ambulatory Orders Acetaminophen [Tylenol] 325 mg PO Q4HWA 09/05/17 Aspirin [Aspirin EC] 81 mg PO DAILY 09/05/17 Labetalol HCl 300 mg PO BID 09/05/17 Pantoprazole Sodium 40 mg PO DAILY 09/05/17 Pioglitazone HCl 15 mg PO DAILY 09/05/17 Rosuvastatin Calcium [Crestor] 10 mg PO HS 09/05/17 Sertraline HCl [Zoloft] 100 mg PO DAILY 09/05/17 Apixaban [Eliquis -] 5 mg PO BID tablet 09/10/17 Donepezil HCl [Aricept -] 10 mg PO DAILY tablet 09/10/17 Furosemide [Lasix -] 40 mg PO DAILY tablet 09/10/17 Lisinopril [Prinivil] 40 mg PO DAILY tablet 09/10/17 Oxycodone HCl [Roxicodone -] 5 mg PO Q4H PRN tablet MDD 4 09/10/17
[2017-09-10 09:56] LABS: BASOPHIL 0.8 % (0-2.0); EOSINOPHIL 3.1 % (0-4.5); MCH 27.3 pg (25.7-33.7); MCHC 33.2 g/dl (32.0-36.0); MEAN CELL VOLUME 82.2 fl (80-96); MEAN PLT VOLUME 10.9 fl (7.5-11.1); NEUTROPHILS 71.7 % (42.8-82.8); PLATELET COUNT 307 K/MM3 (134-434); WHITE BLOOD COUNT 9.3 K/mm3 (4.0-10.0)
[2017-09-10 10:18] LABS: URINE LEUK ESTERASE 3+ (NEGATIVE)
[2017-09-10] MEDS: DONEPEZIL HCL 10 MG TABLET (FP) PO SCH (10:45)
--- NOTE | 2017-09-10 12:36 | PN ---
Progress Note, Physician History of Present Illness: Pt seen and examined at bedside. She is awake and appears comfortable. She denies shortness of breath. - Current Medication List Current Medications: Active Medications Acetaminophen (Tylenol -) 325 mg PO Q4H PRN PRN Reason: PAIN 1-5 Last Admin: 09/08/17 10:24 Dose: 325 mg Apixaban (Eliquis -) 5 mg PO BID [facility] Last Admin: 09/10/17 09:08 Dose: 5 mg Aspirin (Ecotrin -) 81 mg PO DAILY [facility] Last Admin: 09/10/17 09:08 Dose: 81 mg Donepezil HCl (Aricept -) 10 mg PO DAILY [facility] Last Admin: 09/10/17 10:45 Dose: 10 mg Furosemide (Lasix -) 40 mg PO DAILY [facility] Last Admin: 09/10/17 09:08 Dose: 40 mg Insulin Aspart (Novolog Vial Sliding Scale -) 1 vial SQ ACHS [facility] PRN Reason: Protocol Last Admin: 09/10/17 10:45 Dose: Not Given Labetalol HCl (Normodyne -) 300 mg PO BID [facility] Last Admin: 09/10/17 09:09 Dose: 300 mg Lisinopril (Prinivil) 40 mg PO DAILY [facility] Last Admin: 09/10/17 09:08 Dose: 40 mg Pantoprazole Sodium (Protonix -) 40 mg PO DAILY [facility] Last Admin: 09/10/17 09:08 Dose: 40 mg Pioglitazone HCl (Actos -) 15 mg PO AM [facility] Last Admin: 09/10/17 06:33 Dose: 15 mg Rosuvastatin Calcium (Crestor -) 10 mg PO HS [facility] Last Admin: 09/09/17 21:47 Dose: 10 mg Sertraline HCl (Zoloft -) 100 mg PO DAILY [facility] Last Admin: 09/10/17 09:08 Dose: 100 mg - Objective Vital Signs: Vital Signs Temperature 98.1 F 09/10/17 09:00 Pulse Rate 77 09/10/17 11:41 Respiratory Rate 18 09/10/17 09:00 Blood Pressure 99/54 09/10/17 11:41 O2 Sat by Pulse Oximetry (%) 96 09/10/17 09:00 Constitutional: Yes: Calm Eyes: Yes: Conjunctiva Clear HENT: Yes: Atraumatic Neck: Yes: Supple Cardiovascular: Yes: S1, S2 Respiratory: Yes: CTA Bilaterally Gastrointestinal: Yes: Normal Bowel Sounds, Soft Genitourinary: Yes: WNL Musculoskeletal: Yes: Other (leg pain s/p surgery) Edema: Yes Edema: LUE: Trace, RUE: Trace Neurological: Yes: Oriented Labs: CBC, BMP 09/10/17 06:30 09/10/17 05:35 INR, PTT INR 1.39 (0.82-1.09) H 09/05/17 21:53 Problem List - Problems (1) CAD (coronary artery disease) Code(s): I25.10 - ATHSCL HEART DISEASE OF [place] CORONARY ARTERY W/O ANG PCTRS (2) Cardiac pacemaker in situ Code(s): Z95.0 - PRESENCE OF CARDIAC PACEMAKER (3) HTN (hypertension) Code(s): I10 - ESSENTIAL (PRIMARY) HYPERTENSION (4) Renal disease Code(s): N28.9 - DISORDER OF KIDNEY AND URETER, UNSPECIFIED (5) Status post knee replacement Code(s): Z96.659 - PRESENCE OF UNSPECIFIED ARTIFICIAL KNEE JOINT (6) Syncope Code(s): R55 - SYNCOPE AND COLLAPSE Assessment/Plan Current Medications Generic Name Dose Route Start Last Admin Trade Name Freq PRN Reason Stop Dose Admin Acetaminophen 325 mg 09/06/17 10:52 09/08/17 10:24 Tylenol - PO 325 mg Q4H PRN Administration PAIN 1-5 Apixaban 5 mg 09/06/17 22:00 09/10/17 09:08 Eliquis - PO 5 mg BID [facility] Administration Aspirin 81 mg 09/06/17 10:00 09/10/17 09:08 Ecotrin - PO 81 mg DAILY [facility] Administration Donepezil HCl 10 mg 09/10/17 10:00 09/10/17 10:45 Aricept - PO 10 mg DAILY [facility] Administration Furosemide 40 mg 09/09/17 14:15 09/10/17 09:08 Lasix - PO 40 mg DAILY [facility] Administration Insulin Aspart 1 vial 09/06/17 11:00 09/10/17 10:45 Novolog Vial Sliding Scale - SQ Not Given ACHS [facility] Protocol Labetalol HCl 300 mg 09/06/17 10:00 09/10/17 09:09 Normodyne - PO 300 mg BID [facility] Administration Lisinopril 40 mg 09/06/17 10:00 09/10/17 09:08 Prinivil PO 40 mg DAILY [facility] Administration Pantoprazole Sodium 40 mg 09/06/17 10:00 09/10/17 09:08 Protonix - PO 40 mg DAILY [facility] Administration Pioglitazone HCl 15 mg 09/06/17 10:00 09/10/17 06:33 Actos - PO 15 mg AM [facility] Administration Rosuvastatin Calcium 10 mg 09/06/17 22:00 09/09/17 21:47 Crestor - PO 10 mg HS [facility] Administration Sertraline HCl 100 mg 09/06/17 10:00 09/10/17 09:08 Zoloft - PO 100 mg DAILY [facility] Administration Impression 1. likely CKD 2. syncope 3. s/p knee replacement 4. HTN 5. DM 6. chol 7. dementia Plan - will need outpt follow up - cont with lasix - will need cardio follow up - PPM being interrogated now - creatinine is improved - avoid nsaids - workup per neuro/cardio - can cont haseeb for now Dr Peralta
--- NOTE | 2017-09-10 13:40 | EKG ---
Test Reason : Blood Pressure : / mmHG Vent. Rate : 055 BPM Atrial Rate : 054 BPM P-R Int : 000 ms QRS Dur : 196 ms QT Int : 522 ms P-R-T Axes : 086 -80 072 degrees QTc Int : 499 ms Ventricular-paced rhythm a sensed v paced rhythm ABNORMAL ECG WHEN COMPARED WITH ECG OF 06-SEP-2017 13:48, VENT. RATE HAS INCREASED BY 5 BPM Confirmed by KILEY PAREDES, KEN ([id number]) on 09/10/2017 1:39:42 PM Referred By: Confirmed By:KEN CAO MD
--- NOTE | 2017-09-10 15:27 | PN ---
Progress Note, Physician Chief Complaint: Syncope History of Present Illness: The patient is comfortable. She claims that her breathing improved. Denies chest pains and shortness of breath. - Current Medication List Current Medications: Active Medications Acetaminophen (Tylenol -) 325 mg PO Q4H PRN PRN Reason: PAIN 1-5 Last Admin: 09/08/17 10:24 Dose: 325 mg Apixaban (Eliquis -) 5 mg PO BID [facility] Last Admin: 09/10/17 09:08 Dose: 5 mg Aspirin (Ecotrin -) 81 mg PO DAILY [facility] Last Admin: 09/10/17 09:08 Dose: 81 mg Donepezil HCl (Aricept -) 10 mg PO DAILY [facility] Last Admin: 09/10/17 10:45 Dose: 10 mg Furosemide (Lasix -) 40 mg PO DAILY [facility] Last Admin: 09/10/17 09:08 Dose: 40 mg Insulin Aspart (Novolog Vial Sliding Scale -) 1 vial SQ ACHS [facility] PRN Reason: Protocol Last Admin: 09/10/17 10:45 Dose: Not Given Labetalol HCl (Normodyne -) 300 mg PO BID [facility] Last Admin: 09/10/17 09:09 Dose: 300 mg Lisinopril (Prinivil) 40 mg PO DAILY [facility] Last Admin: 09/10/17 09:08 Dose: 40 mg Pantoprazole Sodium (Protonix -) 40 mg PO DAILY [facility] Last Admin: 09/10/17 09:08 Dose: 40 mg Pioglitazone HCl (Actos -) 15 mg PO AM [facility] Last Admin: 09/10/17 06:33 Dose: 15 mg Rosuvastatin Calcium (Crestor -) 10 mg PO HS [facility] Last Admin: 09/09/17 21:47 Dose: 10 mg Sertraline HCl (Zoloft -) 100 mg PO DAILY [facility] Last Admin: 09/10/17 09:08 Dose: 100 mg - Objective Vital Signs: Vital Signs Temperature 98.1 F 09/10/17 09:00 Pulse Rate 77 09/10/17 11:41 Respiratory Rate 18 09/10/17 09:00 Blood Pressure 99/54 09/10/17 11:41 O2 Sat by Pulse Oximetry (%) 96 09/10/17 09:00 Constitutional: Yes: Obese Eyes: Yes: WNL, Conjunctiva Clear HENT: Yes: WNL, Atraumatic, Normocephalic Neck: Yes: WNL, Supple, Trachea Midline Cardiovascular: Yes: WNL, Regular Rate and Rhythm, Bradycardia Respiratory: Yes: WNL, Regular, CTA Bilaterally Gastrointestinal: Yes: WNL, Normal Bowel Sounds, Soft ...Rectal Exam: Yes: Deferred Genitourinary: Yes: WNL Breast(s): Yes: WNL Musculoskeletal: Yes: WNL Edema: Yes Edema: LLE: 1+, RLE: 1+ Peripheral Pulses WNL: Yes Peripheral Pulses: Left Radial: 1+, Right Radial: 1+, Left Doralis Pedis: 1+, Right Dorsalis Pedis: 1+, Left Femoral: 1+, Right Femoral: 1+ Integumentary: Yes: WNL Neurological: Yes: WNL Labs: CBC, BMP 09/10/17 06:30 09/10/17 05:35 INR, PTT INR 1.39 (0.82-1.09) H 09/05/17 21:53 Assessment/Plan The patient is clinically better. She is breathing comfortably. Edema is improving. The blood pressure is borderline low. Please increase Lasix to 40 mg by mouth twice daily. Hold lisinopril for the time being, until the patient is better diuresed since the blood pressure is borderline low. Continue the other medications as currently. The pacemaker interrogated okay. May stop telemetry. No need for further cardiac workup at this point. Would like to see the patient in the office for a follow-up visit. Please do not hesitate to call us PRN
--- NOTE | 2017-09-10 15:29 | PN ---
Progress Note (short form) - Note Progress Note: PULMONARY RESTING COMFORTABLY OFFERS NO COMPLAINTS NO SIGNIFICANT CHANGE IN EXAM LABS/MEDS/NOTES/IMAGES REVEIWED AGREE WITH CURRENT PLAN FOR SNF REHAB Gabriel TEJEDA MD
[2017-09-10] MEDS: ROSUVASTATIN CA 10 MG TABLET (FP) PO SCH (21:56)
[2017-09-11] MEDS ORDERED: PT OWN MED DRAWER 7, Y5N ONE (05:59)
[2017-09-11] MEDS: PIOGLITAZONE HCL 15 MG TABLET (FP) PO SCH (06:06)
[2017-09-11] MEDS: INSULIN SLIDING SCALE (NOVOLOG) 1 VIAL SQ SCH ×4 (06:11→22:04)
[2017-09-11] MEDS ORDERED: LEVOFLOXACIN 250 MG TABLET (FP) PO SCH (08:45)
--- NOTE | 2017-09-11 08:59 | DS ---
Physical Examination Vital Signs: Vital Signs Temperature 98.2 F 09/11/17 06:00 Pulse Rate 58 L 09/11/17 06:00 Respiratory Rate 18 09/11/17 06:00 Blood Pressure 149/58 09/11/17 06:00 O2 Sat by Pulse Oximetry (%) 95 09/10/17 20:44 Findings/Remarks: no complaints Cardiovascular: Yes: Regular Rate and Rhythm Respiratory: Yes: Regular, CTA Bilaterally Gastrointestinal: Yes: Normal Bowel Sounds, Soft. No: Tenderness Labs: CBC, BMP 09/10/17 06:30 09/10/17 05:35 Discharge Summary Reason For Visit: SYNCOPE Current Active Problems CAD (coronary artery disease) (Acute) Cardiac pacemaker in situ (Acute) HTN (hypertension) (Acute) Renal disease (Acute) Status post knee replacement (Acute) Syncope (Acute) Hospital Course: 77 year old female with a past medical history of diabetes, HTN, alzheimer's, CHF s/p PPM, and recent left knee replacement (1 week ago), who presents to the emergency department with syncope. Family states that the patient was transferring from chair to bed when she went unresponsive. Granddaughter states that she was holding the patient in her arms to help her into bed when this occurred. She states that the pt's eyes rolled back and she went stiff. Patient was unconscious for 15 seconds total before returning to baseline. No seizure- like movements were witnessed. After the episode the patient had one episode of clear vomiting. Pt now denies any complaints other than fatigue. Denies ever having CP/SOB/palpitations. Family states that this is not the first time this has happened. SHe has had 2- 3 witnessed syncopal events in the past 3 months. However, she has never seen a doctor regarding these episodes. 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 Cardiovascular: Yes: CAD (S/P PCI), HTN, Hyperlipdemia Pulmonary: Yes: COPD Gastrointestinal: Yes: GERD Musculoskeletal: Yes: Osteoarthritis Endocrine: Yes: Diabetes Mellitus - Past Surgical History Past Surgical History: Yes: Joint Replacement - Problems (1) Syncope Assessment/Plan: echo - nl lv function seen by cardiology needs PPM interrogation- awaiting family to give info at pacemaker Code(s): R55 - SYNCOPE AND COLLAPSE (2) HTN (hypertension) Assessment/Plan: continue current meds Code(s): I10 - ESSENTIAL (PRIMARY) HYPERTENSION (3) Status post knee replacement Assessment/Plan: seen by ortho pt dc [place] Code(s): Z96.659 - PRESENCE OF UNSPECIFIED ARTIFICIAL KNEE JOINT (4) Renal disease Assessment/Plan: renal evaluation renal sono Code(s): N28.9 - DISORDER OF KIDNEY AND URETER, UNSPECIFIED (5) Dementia Assessment/Plan: periods of confusion increase aricept rpeat ct noted (6) laceration Assessment/Plan: local care (7) Elevated d-dimer--has been on eliquis qd on admission Assessment/Plan: d/w dr odell difficult to do v/q scan and pt history unlear why on eliquis best to treat for 6 months of eliquis then evaluate Condition: Improved - Instructions Referrals: Perlita Olivera MD [Primary Care Provider] - Disposition: [facility] - Home Medications Comprehensive Discharge Medication List: Ambulatory Orders Acetaminophen [Tylenol] 325 mg PO Q4HWA 09/05/17 Aspirin [Aspirin EC] 81 mg PO DAILY 09/05/17 Labetalol HCl 300 mg PO BID 09/05/17 Pantoprazole Sodium 40 mg PO DAILY 09/05/17 Pioglitazone HCl 15 mg PO DAILY 09/05/17 Rosuvastatin Calcium [Crestor] 10 mg PO HS 09/05/17 Sertraline HCl [Zoloft] 100 mg PO DAILY 09/05/17 Apixaban [Eliquis -] 5 mg PO BID tablet 09/10/17 Donepezil HCl [Aricept -] 10 mg PO DAILY tablet 09/10/17 Furosemide [Lasix -] 40 mg PO DAILY tablet 09/10/17 Lisinopril [Prinivil] 40 mg PO DAILY tablet 09/10/17 Oxycodone HCl [Roxicodone -] 5 mg PO Q4H PRN tablet MDD 4 09/10/17 Levofloxacin [Levaquin -] 250 mg PO DAILY@0600 tablet 09/11/17
--- NOTE | 2017-09-11 09:22 | PN ---
Progress Note (short form) - Note Progress Note: 77 year old female history of DM, HTN ,Alzheimer disease, CHF , recent left knee replacement. She came to hospital for being unreponsive for few seconds. Her eye rolled back and she went siff, there was no seizure activity ( motor tonic or clonci acvity). There was no tongue bite or incontinence or post ictal confusion. She did have similar event in past. Last night she became very agitated and had to be restrained and she injured her wrist. Patient is now back to her baseline. She was sent for xray of chest , ct head and blood test. Neurological Examination Alert able to follow command, speech is ormal, she is oriented x 2, she is able to tell she is in hospital, today is friday and august. She says she lives in apartment and in [place], and no face asymmetry, pupils is reactive moving all extremity sensation is normal grossly CT Head was normal repeat ct head and electrolytes are pending A/P 1/ Sycope, Unlikley to be Epileptic seizure. CT head is normal and neuro exam is unremarkable. - no need for AED Medication 2. Episode of agitation and confusion two days ago., likely be due to dementia , unlikley to be seizure episode or stroke. CT head , continue aricept Patient is going to Rehab today Fred Espinosa MD
[2017-09-11] MEDS: ASPIRIN COATED 81 MG TABLET.EC PO SCH (09:35)
[2017-09-11] MEDS: SERTRALINE HCL 50 MG TABLET (FP) PO SCH (09:35)
[2017-09-11] MEDS: FUROSEMIDE 40 MG TABLET (FP) PO SCH (09:35)
[2017-09-11] MEDS: APIXABAN 5 MG TABLET PO SCH ×2 (09:35→22:09)
[2017-09-11] MEDS: PANTOPRAZOLE 40 MG TABLET (FP) PO SCH (09:35)
[2017-09-11] MEDS: LISINOPRIL 20 MG TABLET (FP) PO SCH ×2 (09:35→22:09)
[2017-09-11] MEDS: LABETALOL HCL 100 MG TABLET (FP) PO SCH ×2 (09:36→22:09)
[2017-09-11] MEDS: DONEPEZIL HCL 10 MG TABLET (FP) PO SCH (09:43)
--- NOTE | 2017-09-11 15:48 | PN ---
Progress Note, Physician History of Present Illness: Pt seen and examined at bedside. She feels that her breathing is improved from yesterday. She will follow with her PMD as outpt. - Current Medication List Current Medications: Active Medications Acetaminophen (Tylenol -) 325 mg PO Q4H PRN PRN Reason: PAIN 1-5 Last Admin: 09/08/17 10:24 Dose: 325 mg Apixaban (Eliquis -) 5 mg PO BID [facility] Last Admin: 09/11/17 09:35 Dose: 5 mg Aspirin (Ecotrin -) 81 mg PO DAILY [facility] Last Admin: 09/11/17 09:35 Dose: 81 mg Donepezil HCl (Aricept -) 10 mg PO DAILY [facility] Last Admin: 09/11/17 09:43 Dose: 10 mg Insulin Aspart (Novolog Vial Sliding Scale -) 1 vial SQ ACHS [facility] PRN Reason: Protocol Last Admin: 09/11/17 12:00 Dose: Not Given Labetalol HCl (Normodyne -) 300 mg PO BID [facility] Last Admin: 09/11/17 09:36 Dose: 300 mg Levofloxacin (Levaquin -) 250 mg PO DAILY@0600 [facility] Last Admin: 09/11/17 09:35 Dose: 250 mg Lisinopril (Prinivil) 20 mg PO BID [facility] Last Admin: 09/11/17 09:35 Dose: 20 mg Pantoprazole Sodium (Protonix -) 40 mg PO DAILY [facility] Last Admin: 09/11/17 09:35 Dose: 40 mg Pioglitazone HCl (Actos -) 15 mg PO AM [facility] Last Admin: 09/11/17 06:06 Dose: 15 mg Rosuvastatin Calcium (Crestor -) 10 mg PO HS [facility] Last Admin: 09/10/17 21:56 Dose: 10 mg Sertraline HCl (Zoloft -) 100 mg PO DAILY [facility] Last Admin: 09/11/17 09:35 Dose: 100 mg - Objective Vital Signs: Vital Signs Temperature 98.2 F 09/11/17 06:00 Pulse Rate 58 L 09/11/17 10:00 Respiratory Rate 18 09/11/17 10:00 Blood Pressure 142/62 09/11/17 10:00 O2 Sat by Pulse Oximetry (%) 95 09/11/17 09:00 Constitutional: Yes: Calm Eyes: Yes: Conjunctiva Clear HENT: Yes: Atraumatic Cardiovascular: Yes: S1, S2 Respiratory: Yes: CTA Bilaterally Gastrointestinal: Yes: Soft Genitourinary: Yes: WNL Musculoskeletal: Yes: Other (left knee pain) Edema: Yes Edema: LLE: Trace, RLE: Trace Neurological: Yes: Oriented Psychiatric: Yes: Oriented Labs: CBC, BMP 09/10/17 06:30 09/10/17 05:35 INR, PTT INR 1.39 (0.82-1.09) H 09/05/17 21:53 Problem List - Problems (1) CAD (coronary artery disease) Code(s): I25.10 - ATHSCL HEART DISEASE OF [place] CORONARY ARTERY W/O ANG PCTRS (2) Cardiac pacemaker in situ Code(s): Z95.0 - PRESENCE OF CARDIAC PACEMAKER (3) HTN (hypertension) Code(s): I10 - ESSENTIAL (PRIMARY) HYPERTENSION (4) Renal disease Code(s): N28.9 - DISORDER OF KIDNEY AND URETER, UNSPECIFIED (5) Status post knee replacement Code(s): Z96.659 - PRESENCE OF UNSPECIFIED ARTIFICIAL KNEE JOINT (6) Syncope Code(s): R55 - SYNCOPE AND COLLAPSE Assessment/Plan Current Medications Generic Name Dose Route Start Last Admin Trade Name Freq PRN Reason Stop Dose Admin Acetaminophen 325 mg 09/06/17 10:52 09/08/17 10:24 Tylenol - PO 325 mg Q4H PRN Administration PAIN 1-5 Apixaban 5 mg 09/06/17 22:00 09/11/17 09:35 Eliquis - PO 5 mg BID [facility] Administration Aspirin 81 mg 09/06/17 10:00 09/11/17 09:35 Ecotrin - PO 81 mg DAILY [facility] Administration Donepezil HCl 10 mg 09/10/17 10:00 09/11/17 09:43 Aricept - PO 10 mg DAILY [facility] Administration Insulin Aspart 1 vial 09/06/17 11:00 09/11/17 12:00 Novolog Vial Sliding Scale - SQ Not Given ACHS [facility] Protocol Labetalol HCl 300 mg 09/06/17 10:00 09/11/17 09:36 Normodyne - PO 300 mg BID [facility] Administration Levofloxacin 250 mg 09/11/17 08:45 09/11/17 09:35 Levaquin - PO 250 mg DAILY@0600 [facility] Administration Lisinopril 20 mg 09/11/17 10:00 09/11/17 09:35 Prinivil PO 20 mg BID [facility] Administration Pantoprazole Sodium 40 mg 09/06/17 10:00 09/11/17 09:35 Protonix - PO 40 mg DAILY [facility] Administration Pioglitazone HCl 15 mg 09/06/17 10:00 09/11/17 06:06 Actos - PO 15 mg AM [facility] Administration Rosuvastatin Calcium 10 mg 09/06/17 22:00 09/10/17 21:56 Crestor - PO 10 mg HS [facility] Administration Sertraline HCl 100 mg 09/06/17 10:00 09/11/17 09:35 Zoloft - PO 100 mg DAILY [facility] Administration Impression 1. likely CKD 2. syncope 3. s/p knee replacement 4. HTN 5. DM 6. chol 7. dementia Plan - no new labs - will need outpt follow up - cont with lasix with monitoring for renal function - will also need to follow with cardiology as outpt - avoid nsaids - workup per neuro/cardio - can cont haseeb for now Dr Peralta
[2017-09-11] MEDS: ROSUVASTATIN CA 10 MG TABLET (FP) PO SCH (22:09)
[2017-09-12] MEDS: INSULIN SLIDING SCALE (NOVOLOG) 1 VIAL SQ SCH ×4 (06:11→22:19)
[2017-09-12] MEDS ORDERED: PT OWN MED DRAWER 7, Y5N ONE ×3 (06:40→11:15)
[2017-09-12] MEDS: LEVOFLOXACIN 250 MG TABLET (FP) PO SCH (06:52)
[2017-09-12] MEDS: PIOGLITAZONE HCL 15 MG TABLET (FP) PO SCH (06:52)
--- NOTE | 2017-09-12 08:45 | DS ---
Physical Examination Vital Signs: Vital Signs Temperature 98.1 F 09/12/17 06:00 Pulse Rate 70 09/12/17 06:10 Respiratory Rate 20 09/12/17 06:00 Blood Pressure 144/67 09/12/17 06:10 O2 Sat by Pulse Oximetry (%) 97 09/11/17 20:23 Labs: CBC, BMP 09/10/17 06:30 09/10/17 05:35 Discharge Summary Reason For Visit: SYNCOPE Current Active Problems CAD (coronary artery disease) (Acute) Cardiac pacemaker in situ (Acute) HTN (hypertension) (Acute) Renal disease (Acute) Status post knee replacement (Acute) Syncope (Acute) Condition: Improved - Instructions Referrals: Perlita Olivera MD [Primary Care Provider] - [facility] - Home Medications Comprehensive Discharge Medication List: Ambulatory Orders Acetaminophen [Tylenol] 325 mg PO Q4HWA 09/05/17 Aspirin [Aspirin EC] 81 mg PO DAILY 09/05/17 Labetalol HCl 300 mg PO BID 09/05/17 Pantoprazole Sodium 40 mg PO DAILY 09/05/17 Pioglitazone HCl 15 mg PO DAILY 09/05/17 Rosuvastatin Calcium [Crestor] 10 mg PO HS 09/05/17 Sertraline HCl [Zoloft] 100 mg PO DAILY 09/05/17 Apixaban [Eliquis -] 5 mg PO BID tablet 09/10/17 Donepezil HCl [Aricept -] 10 mg PO DAILY tablet 09/10/17 Furosemide [Lasix -] 40 mg PO DAILY tablet 09/10/17 Lisinopril [Prinivil] 40 mg PO DAILY tablet 09/10/17 Oxycodone HCl [Roxicodone -] 5 mg PO Q4H PRN tablet MDD 4 09/10/17 Levofloxacin [Levaquin -] 250 mg PO DAILY@0600 tablet 09/11/17
--- NOTE | 2017-09-12 08:45 | DS ---
Physical Examination Vital Signs: Vital Signs Temperature 98.1 F 09/12/17 06:00 Pulse Rate 70 09/12/17 06:10 Respiratory Rate 20 09/12/17 06:00 Blood Pressure 144/67 09/12/17 06:10 O2 Sat by Pulse Oximetry (%) 97 09/11/17 20:23 Findings/Remarks: FEELS BETTER NO COMPLAINTS Cardiovascular: Yes: Regular Rate and Rhythm Respiratory: Yes: Regular, CTA Bilaterally Gastrointestinal: Yes: Normal Bowel Sounds, Soft Labs: CBC, BMP 09/10/17 06:30 09/10/17 05:35 Discharge Summary Reason For Visit: SYNCOPE Current Active Problems CAD (coronary artery disease) (Acute) Cardiac pacemaker in situ (Acute) HTN (hypertension) (Acute) Renal disease (Acute) Status post knee replacement (Acute) Syncope (Acute) Hospital Course: 77 year old female with a past medical history of diabetes, HTN, alzheimer's, CHF s/p PPM, and recent left knee replacement (1 week ago), who presents to the emergency department with syncope. Family states that the patient was transferring from chair to bed when she went unresponsive. Granddaughter states that she was holding the patient in her arms to help her into bed when this occurred. She states that the pt's eyes rolled back and she went stiff. Patient was unconscious for 15 seconds total before returning to baseline. No seizure- like movements were witnessed. After the episode the patient had one episode of clear vomiting. Pt now denies any complaints other than fatigue. Denies ever having CP/SOB/palpitations. Family states that this is not the first time this has happened. SHe has had 2- 3 witnessed syncopal events in the past 3 months. However, she has never seen a doctor regarding these episodes. 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 Cardiovascular: Yes: CAD (S/P PCI), HTN, Hyperlipdemia Pulmonary: Yes: COPD Gastrointestinal: Yes: GERD Musculoskeletal: Yes: Osteoarthritis Endocrine: Yes: Diabetes Mellitus - Past Surgical History Past Surgical History: Yes: Joint Replacement - Problems (1) Syncope Assessment/Plan: echo - nl lv function seen by cardiology needs PPM interrogation- awaiting family to give info at pacemaker Code(s): R55 - SYNCOPE AND COLLAPSE (2) HTN (hypertension) Assessment/Plan: continue current meds Code(s): I10 - ESSENTIAL (PRIMARY) HYPERTENSION (3) Status post knee replacement Assessment/Plan: seen by ortho pt dc [place] Code(s): Z96.659 - PRESENCE OF UNSPECIFIED ARTIFICIAL KNEE JOINT (4) Renal disease Assessment/Plan: renal evaluation renal sono Code(s): N28.9 - DISORDER OF KIDNEY AND URETER, UNSPECIFIED (5) Dementia Assessment/Plan: periods of confusion increase aricept rpeat ct noted (6) laceration Assessment/Plan: local care (7) Elevated d-dimer--has been on eliquis qd on admission Assessment/Plan: d/w dr odell difficult to do v/q scan and pt history unlear why on eliquis best to treat for 6 months of eliquis then evaluate (8) ORTHOSTATIC BP Assessment/Plan: OFF LASIX Selected Entries 09/12/17 09/12/17 06:05 06:10 Blood Pressure 152/68 144/67 Selected Entries 09/11/17 14:00 Blood Pressure 94/44 [Left side Sitting] Blood Pressure 124/72 [Left side Standing] Blood Pressure 127/55 [Left side Supine] Condition: Improved - Instructions Referrals: Perlita Olivera MD [Primary Care Provider] - [facility] - Home Medications Comprehensive Discharge Medication List: Ambulatory Orders Acetaminophen [Tylenol] 325 mg PO Q4HWA 09/05/17 Aspirin [Aspirin EC] 81 mg PO DAILY 09/05/17 Labetalol HCl 300 mg PO BID 09/05/17 Pantoprazole Sodium 40 mg PO DAILY 09/05/17 Pioglitazone HCl 15 mg PO DAILY 09/05/17 Rosuvastatin Calcium [Crestor] 10 mg PO HS 09/05/17 Sertraline HCl [Zoloft] 100 mg PO DAILY 09/05/17 Apixaban [Eliquis -] 5 mg PO BID tablet 09/10/17 Donepezil HCl [Aricept -] 10 mg PO DAILY tablet 09/10/17 Lisinopril [Prinivil] 40 mg PO DAILY tablet 09/10/17 Oxycodone HCl [Roxicodone -] 5 mg PO Q4H PRN tablet MDD 4 09/10/17 Levofloxacin [Levaquin -] 250 mg PO DAILY@0600 tablet 09/11/17
[2017-09-12] MEDS: ASPIRIN COATED 81 MG TABLET.EC PO SCH (09:48)
[2017-09-12] MEDS: APIXABAN 5 MG TABLET PO SCH ×2 (09:48→22:20)
[2017-09-12] MEDS: LABETALOL HCL 100 MG TABLET (FP) PO SCH ×2 (09:48→22:20)
[2017-09-12] MEDS: DONEPEZIL HCL 10 MG TABLET (FP) PO SCH (09:48)
[2017-09-12] MEDS: SERTRALINE HCL 50 MG TABLET (FP) PO SCH (09:49)
[2017-09-12] MEDS: LISINOPRIL 20 MG TABLET (FP) PO SCH (09:49)
[2017-09-12] MEDS: PANTOPRAZOLE 40 MG TABLET (FP) PO SCH (09:49)
--- NOTE | 2017-09-12 12:50 | PN ---
Progress Note (short form) - Note Progress Note: PULMONARY RESTING COMFORTABLY OFFERS NO COMPLAINTS NO SIGNIFICANT CHANGE IN EXAM LABS/MEDS/NOTES/IMAGES REVEIWED BRAIN CT IS NEGATIVE AGREE WITH CURRENT PLAN FOR SNF REHAB Gabriel TEJEDA MD
--- NOTE | 2017-09-12 14:34 | PN ---
Progress Note, Physician History of Present Illness: Pt seen and examined at bedside. She is sitting up in a chair. She denies shortness of breath at rest. - Current Medication List Current Medications: Active Medications Acetaminophen (Tylenol -) 325 mg PO Q4H PRN PRN Reason: PAIN 1-5 Last Admin: 09/08/17 10:24 Dose: 325 mg Apixaban (Eliquis -) 5 mg PO BID [facility] Last Admin: 09/12/17 09:48 Dose: 5 mg Aspirin (Ecotrin -) 81 mg PO DAILY [facility] Last Admin: 09/12/17 09:48 Dose: 81 mg Donepezil HCl (Aricept -) 10 mg PO DAILY [facility] Last Admin: 09/12/17 09:48 Dose: 10 mg Insulin Aspart (Novolog Vial Sliding Scale -) 1 vial SQ ACHS [facility] PRN Reason: Protocol Last Admin: 09/12/17 11:12 Dose: Not Given Labetalol HCl (Normodyne -) 300 mg PO BID [facility] Last Admin: 09/12/17 09:48 Dose: 300 mg Levofloxacin (Levaquin -) 250 mg PO DAILY@0600 [facility] Last Admin: 09/12/17 06:52 Dose: 250 mg Lisinopril (Prinivil) 20 mg PO BID [facility] Last Admin: 09/12/17 09:49 Dose: 20 mg Pantoprazole Sodium (Protonix -) 40 mg PO DAILY [facility] Last Admin: 09/12/17 09:49 Dose: 40 mg Pioglitazone HCl (Actos -) 15 mg PO AM [facility] Last Admin: 09/12/17 06:52 Dose: 15 mg Rosuvastatin Calcium (Crestor -) 10 mg PO HS [facility] Last Admin: 09/11/17 22:09 Dose: 10 mg Sertraline HCl (Zoloft -) 100 mg PO DAILY [facility] Last Admin: 09/12/17 09:49 Dose: 100 mg - Objective Vital Signs: Vital Signs Temperature 98.0 F 09/12/17 13:29 Pulse Rate 66 09/12/17 13:31 Respiratory Rate 18 09/12/17 13:31 Blood Pressure 85/53 09/12/17 13:31 O2 Sat by Pulse Oximetry (%) 97 09/11/17 20:23 Constitutional: Yes: Calm Eyes: Yes: Conjunctiva Clear HENT: Yes: Atraumatic Neck: Yes: Supple Cardiovascular: Yes: S1, S2 Respiratory: Yes: On Nasal O2 Gastrointestinal: Yes: Soft Genitourinary: Yes: WNL Edema: Yes Edema: LLE: 1+, RLE: 1+ Neurological: Yes: Oriented Psychiatric: Yes: Oriented Labs: CBC, BMP 09/10/17 06:30 09/10/17 05:35 INR, PTT INR 1.39 (0.82-1.09) H 09/05/17 21:53 Problem List - Problems (1) CAD (coronary artery disease) Code(s): I25.10 - ATHSCL HEART DISEASE OF [place] CORONARY ARTERY W/O ANG PCTRS (2) Cardiac pacemaker in situ Code(s): Z95.0 - PRESENCE OF CARDIAC PACEMAKER (3) HTN (hypertension) Code(s): I10 - ESSENTIAL (PRIMARY) HYPERTENSION (4) Renal disease Code(s): N28.9 - DISORDER OF KIDNEY AND URETER, UNSPECIFIED (5) Status post knee replacement Code(s): Z96.659 - PRESENCE OF UNSPECIFIED ARTIFICIAL KNEE JOINT (6) Syncope Code(s): R55 - SYNCOPE AND COLLAPSE Assessment/Plan Current Medications Generic Name Dose Route Start Last Admin Trade Name Freq PRN Reason Stop Dose Admin Acetaminophen 325 mg 09/06/17 10:52 09/08/17 10:24 Tylenol - PO 325 mg Q4H PRN Administration PAIN 1-5 Apixaban 5 mg 09/06/17 22:00 09/12/17 09:48 Eliquis - PO 5 mg BID [facility] Administration Aspirin 81 mg 09/06/17 10:00 09/12/17 09:48 Ecotrin - PO 81 mg DAILY [facility] Administration Donepezil HCl 10 mg 09/10/17 10:00 09/12/17 09:48 Aricept - PO 10 mg DAILY [facility] Administration Insulin Aspart 1 vial 09/06/17 11:00 09/12/17 11:12 Novolog Vial Sliding Scale - SQ Not Given ACHS [facility] Protocol Labetalol HCl 300 mg 09/06/17 10:00 09/12/17 09:48 Normodyne - PO 300 mg BID [facility] Administration Levofloxacin 250 mg 09/12/17 07:00 09/12/17 06:52 Levaquin - PO 250 mg DAILY@0600 [facility] Administration Lisinopril 20 mg 09/11/17 10:00 09/12/17 09:49 Prinivil PO 20 mg BID [facility] Administration Pantoprazole Sodium 40 mg 09/06/17 10:00 09/12/17 09:49 Protonix - PO 40 mg DAILY [facility] Administration Pioglitazone HCl 15 mg 09/06/17 10:00 09/12/17 06:52 Actos - PO 15 mg AM [facility] Administration Rosuvastatin Calcium 10 mg 09/06/17 22:00 09/11/17 22:09 Crestor - PO 10 mg HS [facility] Administration Sertraline HCl 100 mg 09/06/17 10:00 09/12/17 09:49 Zoloft - PO 100 mg DAILY [facility] Administration Impression 1. likely CKD 2. syncope 3. s/p knee replacement 4. HTN 5. DM 6. chol 7. dementia Plan - will need outpt follow up - monitor volume status - recommend lasix - will also need to follow with cardiology as outpt - avoid nsaids - can cont haseeb for now - monitor blood pressure Dr Peralta
--- NOTE | 2017-09-12 14:36 | PN ---
Progress Note (short form) - Note Progress Note: 77 year old female history of DM, HTN ,Alzheimer disease, CHF , recent left knee replacement. She came to hospital for being unreponsive for few seconds. Her eye rolled back and she went siff, there was no seizure activity ( motor tonic or clonci acvity). There was no tongue bite or incontinence or post ictal confusion. She did have similar event in past. Last night she became very agitated and had to be restrained and she injured her wrist. Patient is now back to her baseline. She was sent for xray of chest , ct head and blood test. She was feeling dizzy and had repeat ct scan and it was normal. She had found to have postural hypotension and was about to be discharged and discharged is being held for now. Neurological Examination Alert able to follow command, speech is ormal, she is oriented x 2, she is able to tell she is in hospital, today is friday and august. She says she lives in apartment and in [place], and no face asymmetry, pupils is reactive moving all extremity sensation is normal grossly CT Head was normal on september [address] head and electrolytes are pending A/P 1/ Sycope, Unlikley to be Epileptic seizure. CT head is normal and neuro exam is unremarkable. she is feeling dizzy and found to have postural hypotension. repeat ct head is normal 2. Episode of agitation and confusion two days ago., likely be due to dementia , unlikley to be seizure episode or stroke. CT head , continue aricept discharge being held, Please call compliance and control analyst Neurologist if any issue, If she stays in hospit, I will see her on Friday. Fred Espinosa MD
[2017-09-12] MEDS ORDERED: LISINOPRIL 20 MG TABLET (FP) PO SCH (22:00)
[2017-09-12] MEDS: ROSUVASTATIN CA 10 MG TABLET (FP) PO SCH (22:20)
[2017-09-13] MEDS ORDERED: PT OWN MED DRAWER 7, Y5N ONE (06:05)
[2017-09-13] MEDS: PIOGLITAZONE HCL 15 MG TABLET (FP) PO SCH (06:15)
[2017-09-13] MEDS: INSULIN SLIDING SCALE (NOVOLOG) 1 VIAL SQ SCH ×2 (06:16→11:42)
[2017-09-13] MEDS: LEVOFLOXACIN 250 MG TABLET (FP) PO SCH (06:16)
[2017-09-13 08:34] LABS: BASOPHIL 0.8 % (0-2.0); EOSINOPHIL 4.1 % (0-4.5); MCH 26.6 pg (25.7-33.7); MCHC 32.4 g/dl (32.0-36.0); MEAN CELL VOLUME 82.2 fl (80-96); MEAN PLT VOLUME 11.3 fl (7.5-11.1); NEUTROPHILS 71.6 % (42.8-82.8); PLATELET COUNT 313 K/MM3 (134-434); RDW 15.1 % (11.6-15.6); WHITE BLOOD COUNT 8.5 K/mm3 (4.0-10.0)
[2017-09-13 09:03] LABS: ALBUMIN 3.1 g/dl (3.4-5.0); ANION GAP 9 (8-16); CALCIUM 9.2 mg/dL (8.5-10.1); CO2 28 mmol/L (21-32)
[2017-09-13 09:08] LABS: ALK PHOS 102 U/L (45-117); BILIRUBIN,TOTAL 0.4 mg/dL (0.2-1.0); CREATININE 1.5 mg/dL (0.55-1.02); GLUCOSE,RANDOM 99 mg/dL (74-106); SGOT/AST 11 U/L (15-37); SGPT/ALT 17 U/L (12-78); TOT PROT 6.4 g/dl (6.4-8.2)
[2017-09-13 10:22] VITALS: BP 130/55; PULSE 56; TEMP 98
[2017-09-13] MEDS: ASPIRIN COATED 81 MG TABLET.EC PO SCH (10:29)
[2017-09-13] MEDS: APIXABAN 5 MG TABLET PO SCH (10:29)
[2017-09-13] MEDS: LABETALOL HCL 100 MG TABLET (FP) PO SCH (10:29)
[2017-09-13] MEDS: SERTRALINE HCL 50 MG TABLET (FP) PO SCH (10:29)
[2017-09-13] MEDS: PANTOPRAZOLE 40 MG TABLET (FP) PO SCH (10:29)
[2017-09-13] MEDS: DONEPEZIL HCL 10 MG TABLET (FP) PO SCH (10:29)
[2017-09-13] MEDS ORDERED: INSULIN (NOVOLOG) ASPART 100 UNITS/ML 10ML VIAL ONE (11:32)
--- NOTE | 2017-09-13 11:42 | DS ---
Physical Examination Vital Signs: Vital Signs Temperature 98.0 F 09/13/17 10:00 Pulse Rate 56 L 09/13/17 10:00 Respiratory Rate 18 09/13/17 10:00 Blood Pressure 130/55 09/13/17 10:00 O2 Sat by Pulse Oximetry (%) 97 09/11/17 20:23 Cardiovascular: Yes: Regular Rate and Rhythm Respiratory: Yes: Regular, CTA Bilaterally Gastrointestinal: Yes: Normal Bowel Sounds, Soft Labs: CBC, BMP 09/13/17 07:30 09/13/17 07:30 Discharge Summary Reason For Visit: SYNCOPE Current Active Problems CAD (coronary artery disease) (Acute) Cardiac pacemaker in situ (Acute) HTN (hypertension) (Acute) Renal disease (Acute) Status post knee replacement (Acute) Syncope (Acute) Hospital Course: 77 year old female with a past medical history of diabetes, HTN, alzheimer's, CHF s/p PPM, and recent left knee replacement (1 week ago), who presents to the emergency department with syncope. Family states that the patient was transferring from chair to bed when she went unresponsive. Granddaughter states that she was holding the patient in her arms to help her into bed when this occurred. She states that the pt's eyes rolled back and she went stiff. Patient was unconscious for 15 seconds total before returning to baseline. No seizure- like movements were witnessed. After the episode the patient had one episode of clear vomiting. Pt now denies any complaints other than fatigue. Denies ever having CP/SOB/palpitations. Family states that this is not the first time this has happened. SHe has had 2- 3 witnessed syncopal events in the past 3 months. However, she has never seen a doctor regarding these episodes. - Past Medical History [employer]: Yes: Dementia Cardiovascular: Yes: CAD (S/P PCI), HTN, Hyperlipdemia Pulmonary: Yes: COPD Gastrointestinal: Yes: GERD Musculoskeletal: Yes: Osteoarthritis Endocrine: Yes: Diabetes Mellitus - Past Surgical History Past Surgical History: Yes: Joint Replacement - Problems (1) Syncope Assessment/Plan: echo - nl lv function seen by cardiology needs PPM interrogation- awaiting family to give info at pacemaker Code(s): R55 - SYNCOPE AND COLLAPSE (2) HTN (hypertension) Assessment/Plan: continue current meds Code(s): I10 - ESSENTIAL (PRIMARY) HYPERTENSION (3) Status post knee replacement Assessment/Plan: seen by ortho pt amparo worley Code(s): Z96.659 - PRESENCE OF UNSPECIFIED ARTIFICIAL KNEE JOINT (4) Renal disease Assessment/Plan: renal evaluation renal sono Code(s): N28.9 - DISORDER OF KIDNEY AND URETER, UNSPECIFIED (5) Dementia Assessment/Plan: periods of confusion increase aricept rpeat ct noted (6) laceration Assessment/Plan: local care (7) Elevated d-dimer--has been on eliquis qd on admission Assessment/Plan: d/w dr odell difficult to do v/q scan and pt history unlear why on eliquis best to treat for 6 months of eliquis then evaluate (8) ORTHOSTATIC BP Assessment/Plan: OFF LASIX Selected Entries 09/12/17 09/12/17 06:05 06:10 Blood Pressure 152/68 144/67 Selected Entries 09/11/17 14:00 Blood Pressure 94/44 [Left side Sitting] Blood Pressure 124/72 [Left side Standing] Blood Pressure 127/55 [Left side Supine] Condition: Improved - Instructions Diet, Activity, Other Instructions: bmp twice a week monitor orthostatic bp Referrals: Perlita Olivera MD [Primary Care Provider] - Disposition: RESIDENTIAL FACILITY - Home Medications Comprehensive Discharge Medication List: Ambulatory Orders Acetaminophen [Tylenol] 325 mg PO Q4HWA 09/05/17 Aspirin [Aspirin EC] 81 mg PO DAILY 09/05/17 Labetalol HCl 300 mg PO BID 09/05/17 Pantoprazole Sodium 40 mg PO DAILY 09/05/17 Pioglitazone HCl 15 mg PO DAILY 09/05/17 Rosuvastatin Calcium [Crestor] 10 mg PO HS 09/05/17 Sertraline HCl [Zoloft] 100 mg PO DAILY 09/05/17 Apixaban [Eliquis -] 5 mg PO BID tablet 09/10/17 Donepezil HCl [Aricept -] 10 mg PO DAILY tablet 09/10/17 Lisinopril [Prinivil] 40 mg PO DAILY tablet 09/10/17 Oxycodone HCl [Roxicodone -] 5 mg PO Q4H PRN tablet MDD 4 09/10/17 Levofloxacin [Levaquin -] 250 mg PO DAILY@0600 tablet 09/11/17
--- NOTE | 2017-09-13 15:39 | PN ---
Progress Note, Physician History of Present Illness: Pt seen and examined at bedside. She is awake and appears comfortable. - Current Medication List Current Medications: Active Medications Acetaminophen (Tylenol -) 325 mg PO Q4H PRN PRN Reason: PAIN 1-5 Last Admin: 09/08/17 10:24 Dose: 325 mg Apixaban (Eliquis -) 5 mg PO BID [facility] Last Admin: 09/13/17 10:29 Dose: 5 mg Aspirin (Ecotrin -) 81 mg PO DAILY [facility] Last Admin: 09/13/17 10:29 Dose: 81 mg Donepezil HCl (Aricept -) 10 mg PO DAILY [facility] Last Admin: 09/13/17 10:29 Dose: 10 mg Insulin Aspart (Novolog Vial Sliding Scale -) 1 vial SQ ACHS [facility] PRN Reason: Protocol Last Admin: 09/13/17 11:42 Dose: Not Given Labetalol HCl (Normodyne -) 300 mg PO BID [facility] Last Admin: 09/13/17 10:29 Dose: 300 mg Levofloxacin (Levaquin -) 250 mg PO DAILY@0600 [facility] Last Admin: 09/13/17 06:16 Dose: 250 mg Lisinopril (Prinivil) 20 mg PO HS [facility] Last Admin: 09/12/17 22:19 Dose: 20 mg Pantoprazole Sodium (Protonix -) 40 mg PO DAILY [facility] Last Admin: 09/13/17 10:29 Dose: 40 mg Pioglitazone HCl (Actos -) 15 mg PO AM [facility] Last Admin: 09/13/17 06:15 Dose: 15 mg Rosuvastatin Calcium (Crestor -) 10 mg PO HS [facility] Last Admin: 09/12/17 22:20 Dose: 10 mg Sertraline HCl (Zoloft -) 100 mg PO DAILY [facility] Last Admin: 09/13/17 10:29 Dose: 100 mg - Objective Vital Signs: Vital Signs Temperature 98.0 F 09/13/17 10:00 Pulse Rate 56 L 09/13/17 10:00 Respiratory Rate 18 09/13/17 10:00 Blood Pressure 130/55 09/13/17 10:00 O2 Sat by Pulse Oximetry (%) 97 09/11/17 20:23 Constitutional: Yes: Calm Eyes: Yes: Conjunctiva Clear HENT: Yes: Atraumatic Neck: Yes: Supple Cardiovascular: Yes: S1, S2 Respiratory: Yes: On Nasal O2 Gastrointestinal: Yes: Soft Genitourinary: Yes: WNL Edema: Yes Neurological: Yes: Oriented Labs: CBC, BMP 09/13/17 07:30 09/13/17 07:30 INR, PTT INR 1.39 (0.82-1.09) H 09/05/17 21:53 Problem List - Problems (1) CAD (coronary artery disease) Code(s): I25.10 - ATHSCL HEART DISEASE OF [place] CORONARY ARTERY W/O ANG PCTRS (2) Cardiac pacemaker in situ Code(s): Z95.0 - PRESENCE OF CARDIAC PACEMAKER (3) HTN (hypertension) Code(s): I10 - ESSENTIAL (PRIMARY) HYPERTENSION (4) Renal disease Code(s): N28.9 - DISORDER OF KIDNEY AND URETER, UNSPECIFIED (5) Status post knee replacement Code(s): Z96.659 - PRESENCE OF UNSPECIFIED ARTIFICIAL KNEE JOINT (6) Syncope Code(s): R55 - SYNCOPE AND COLLAPSE Assessment/Plan Current Medications Generic Name Dose Route Start Last Admin Trade Name Freq PRN Reason Stop Dose Admin Acetaminophen 325 mg 09/06/17 10:52 09/08/17 10:24 Tylenol - PO 325 mg Q4H PRN Administration PAIN 1-5 Apixaban 5 mg 09/06/17 22:00 09/13/17 10:29 Eliquis - PO 5 mg BID ISMA Administration Aspirin 81 mg 09/06/17 10:00 09/13/17 10:29 Ecotrin - PO 81 mg DAILY ISMA Administration Donepezil HCl 10 mg 09/10/17 10:00 09/13/17 10:29 Aricept - PO 10 mg DAILY ISMA Administration Insulin Aspart 1 vial 09/06/17 11:00 09/13/17 11:42 Novolog Vial Sliding Scale - SQ Not Given ACHS ISMA Protocol Labetalol HCl 300 mg 09/06/17 10:00 09/13/17 10:29 Normodyne - PO 300 mg BID ISMA Administration Levofloxacin 250 mg 09/12/17 07:00 09/13/17 06:16 Levaquin - PO 250 mg DAILY@0600 [facility] Administration Lisinopril 20 mg 09/12/17 22:00 09/12/17 22:19 Prinivil PO 20 mg HS ISMA Administration Pantoprazole Sodium 40 mg 09/06/17 10:00 09/13/17 10:29 Protonix - PO 40 mg DAILY [facility] Administration Pioglitazone HCl 15 mg 09/06/17 10:00 09/13/17 06:15 Actos - PO 15 mg AM ISMA Administration Rosuvastatin Calcium 10 mg 09/06/17 22:00 09/12/17 22:20 Crestor - PO 10 mg HS [facility] Administration Sertraline HCl 100 mg 09/06/17 10:00 09/13/17 10:29 Zoloft - PO 100 mg DAILY [facility] Administration Impression 1. CKD 2. syncope 3. s/p knee replacement 4. HTN 5. DM 6. chol 7. dementia Plan - reviewed labs - agree with rehab - recommend lasix - avoid nsaids - can cont haseeb for now - monitor blood pressure Dr Peralta
== END 2017-09-13 16:46 | DRG 312 ==
LOC: JER 19:19 → INTOOBSV 09-06 00:30 → UNDOADMOB 09-06 00:30 → OBSVTOIN 09-06 00:30 → JERBED 09-06 00:30 → UNDOADMOB 09-06 00:38 → JERBED 09-06 07:19 → OBSVTOIN 09-06 07:19 → J4S 09-06 11:18
PROVIDERS: ADMIT Family Medicine; ATTEND Family Medicine
DX: R55 Syncope and collapse (principal); I13.0 Hypertensive heart and chronic kidney disease with heart failure and stage 1 through stage 4 chronic kidney disease, or unspecified chronic kidney disease; G30.9 Alzheimer's disease, unspecified; Z95.0 Presence of cardiac pacemaker; F02.80 Dementia in other diseases classified elsewhere, unspecified severity, without behavioral disturbance, psychotic disturbance, mood disturbance, and anxiety; I50.9 Heart failure, unspecified; I25.10 Atherosclerotic heart disease of native coronary artery without angina pectoris; E78.5 Hyperlipidemia, unspecified; K21.9 Gastro-esophageal reflux disease without esophagitis; Z88.0 Allergy status to penicillin; E11.22 Type 2 diabetes mellitus with diabetic chronic kidney disease; N18.9 Chronic kidney disease, unspecified; I27.20 Pulmonary hypertension, unspecified; E66.9 Obesity, unspecified; Z68.33 Body mass index [BMI] 33.0-33.9, adult; R45.1 Restlessness and agitation
CPT/HCPCS: 36415; 70450-TC; 71010-TC; 73560-TC-LT; 76775-TC; 76856-TC; 80048; 80053; 81003; 81015; 82550; 83880; 84484; 85025; 85027; 85379; 85610; 85730; 87086; 87186; 93005; 93010; 93306-TC; 93970-TC; 95816; 97116-GP; 97161-GP; 99285-25